=== PATIENT | female | born 1965 | race African-American/Black ===

== ENCOUNTER 2017-07-08 08:19 | Emergency (ER) | payer MEDICARE, MEDICAID ==
[~2017-07-08] VITALS: Ht 165.1 cm; Wt 77.0 kg
[~2017-07-08 08:19] MED LIST: AMLO10TA4 PO; FURO-152 PO
[2017-07-08 08:33] VITALS: BP 146/82
[2017-07-08] MEDS ORDERED: ACETAMINOPHEN 325MG TABLET PO ONE (09:30)
== END 2017-07-08 11:16 | disposition home or self-care (01) ==
LOC: ER 09:36
DX: M25.562 Pain in left knee (principal); I12.0 Hypertensive chronic kidney disease with stage 5 chronic kidney disease or end stage renal disease; N18.6 End stage renal disease; Z99.2 Dependence on renal dialysis; Z88.0 Allergy status to penicillin
CPT/HCPCS: 73562; 99284; L1830

== ENCOUNTER 2021-12-26 07:52 | Emergency (ER) | payer MEDICARE, MEDICAID ==
[~2021-12-26] VITALS: Ht 162.6 cm; Wt 72.0 kg
[2021-12-26] MEDS ORDERED: ONDANSETRON HCL 4MG TABLET PO ONE (08:30)
[2021-12-26 10:12] VITALS: BP 146/78
== END 2021-12-26 10:13 | disposition home or self-care (01) ==
LOC: SUPCPDRO 08:52 → ER 09:10
DX: I16.1 Hypertensive emergency (principal); I12.0 Hypertensive chronic kidney disease with stage 5 chronic kidney disease or end stage renal disease; N18.6 End stage renal disease; Z99.2 Dependence on renal dialysis; Z79.899 Other long term (current) drug therapy; Z88.0 Allergy status to penicillin
CPT/HCPCS: 99283; Q0162

== ENCOUNTER 2022-02-15 04:24 | Inpatient (IN) | payer MEDICARE, MEDICAID ==
[~2022-02-15] VITALS: Ht 165.1 cm; Wt 53.6 kg
[2022-02-15 06:23] LABS: BASOPHILS % 0.7 % (0.0-2.0); EOSINOPHILS % 0.2 % (0.0-5.0); HEMATOCRIT. 29.7 % (36.0-48.0); HEMOGLOBIN. 9.7 g/dL (12.0-16.0); LYMPHOCYTES % 9.6 % (20.0-50.0); MEAN CORPUSCULAR HEMOGLOBIN 28.1 pg (28.0-32.0); MEAN CORPUSCULAR VOLUME 86.3 fL (81.0-99.0); MEAN PLATELET VOLUME 7.9 fl (7.4-10.4); MONOCYTES % 5.3 % (2.0-8.0); NEUTROPHILS % 84.2 % (40.0-76.0); PLATELET 197 x1000/uL (130-400); RED BLOOD CELL COUNT 3.44 mill/uL (4.2-5.4); RED CELL DISTRIBUTION WIDTH 17.2 % (11.6-14.6)
[2022-02-15 06:37] LABS: CHLORIDE 100 mEq/L (98-107)
[2022-02-15 07:09] LABS: HEPATITIS B SURFACE ANTIGEN NEGATIVE
[2022-02-15] MEDS ORDERED: CLONIDINE 0.1MG TABLET PO PRN (16:15)
[2022-02-15] MEDS ORDERED: ACETAMINOPHEN 325MG TABLET PO PRN ×2 (16:15)
[2022-02-15] MEDS ORDERED: HYDROCODONE/ACETAMINOPHEN 5/325MG TABLET PO PRN (16:15)
[2022-02-15] MEDS ORDERED: ENOXAPARIN 40MG/0.4ML SYR SUBCUT SCH (16:15)
[2022-02-15] MEDS ORDERED: MAGNESIUM/ALUMINUM HYDROXIDE/SIMETHICONE 30ML UDC PO PRN (16:15)
[2022-02-15] MEDS ORDERED: ONDANSETRON HCL 4MG/2ML INJ IV PRN (16:15)
[2022-02-15] MEDS ORDERED: GUAIFENESIN 200MG/10ML SUGAR FREE UDC PO PRN (16:15)
[2022-02-15] MEDS ORDERED: LOSA100T32 PO (16:28)
[2022-02-15] MEDS ORDERED: REN800 PO (16:28)
[2022-02-15] MEDS ORDERED: CLON0.2T PO (16:28)
[2022-02-15] MEDS ORDERED: HYDR100T31 PO (16:28)
[2022-02-15] MEDS ORDERED: AMLO10TA80 PO (16:28)
[2022-02-15] MEDS: METOPROLOL TARTRATE 25MG TABLET PO SCH ×3 (16:30→20:25)
[2022-02-15 18:11] VITALS: BP 161/99
[2022-02-15] MEDS: HYDRALAZINE HCL 100MG TABLET PO SCH (18:19)
[2022-02-15] MEDS: SEVELAMER CARBONATE 800 MG TABLET PO SCH (18:19)
[2022-02-15 20:00] VITALS: BP 126/71
[2022-02-15] MEDS: ENOXAPARIN 30MG/0.3ML SYR SUBCUT SCH (20:22)
[2022-02-16 00:17] VITALS: BP 143/85
[2022-02-16 04:13] VITALS: BP 143/96
[2022-02-16 08:00] VITALS: BP 128/78
[2022-02-16 08:18] LABS: BASOPHILS % 1.7 % (0.0-2.0); HEMATOCRIT. 29.1 % (36.0-48.0); HEMOGLOBIN. 9.7 g/dL (12.0-16.0); LYMPHOCYTES % 18.6 % (20.0-50.0); MEAN CORPUSCULAR HEMOGLOBIN 28.5 pg (28.0-32.0); MEAN CORPUSCULAR VOLUME 85.7 fL (81.0-99.0); MEAN PLATELET VOLUME 8.5 fl (7.4-10.4); NEUTROPHILS % 69.7 % (40.0-76.0); PLATELET 223 x1000/uL (130-400); RED CELL DISTRIBUTION WIDTH 17.2 % (11.6-14.6)
[2022-02-16] MEDS: METOPROLOL TARTRATE 25MG TABLET PO SCH ×2 (09:00→21:00)
[2022-02-16] MEDS ORDERED: LOSARTAN POTASSIUM 100 MG TABLET PO SCH (09:00)
[2022-02-16] MEDS: AMLODIPINE 10MG TABLET PO SCH (10:37)
[2022-02-16] MEDS: HYDRALAZINE HCL 100MG TABLET PO SCH ×4 (10:37→22:01)
[2022-02-16] MEDS: SEVELAMER CARBONATE 800 MG TABLET PO SCH ×3 (10:37→19:23)
[2022-02-16 12:00] VITALS: BP 158/108
[2022-02-16 17:22] VITALS: BP 137/85
[2022-02-16 20:00] VITALS: BP 154/91
[2022-02-16] MEDS: ENOXAPARIN 30MG/0.3ML SYR SUBCUT SCH (21:00)
[2022-02-16] MEDS: LOSARTAN POTASSIUM 100 MG TABLET PO SCH (22:01)
[2022-02-17] VITALS: BP 153/100
[2022-02-17 04:00] VITALS: BP 138/82
[2022-02-17] MEDS: HYDRALAZINE HCL 100MG TABLET PO SCH ×3 (06:45→21:42)
[2022-02-17 08:00] VITALS: BP 155/93
[2022-02-17 08:12] LABS: BASOPHILS % 1.3 % (0.0-2.0); EOSINOPHILS % 3.1 % (0.0-5.0); HEMATOCRIT. 30.4 % (36.0-48.0); HEMOGLOBIN. 10.1 g/dL (12.0-16.0); LYMPHOCYTES % 17.4 % (20.0-50.0); MEAN CORPUSCULAR HEMOGLOBIN 28.5 pg (28.0-32.0); MEAN CORPUSCULAR VOLUME 85.7 fL (81.0-99.0); MEAN PLATELET VOLUME 7.9 fl (7.4-10.4); MONOCYTES % 7.9 % (2.0-8.0); NEUTROPHILS % 70.3 % (40.0-76.0); PLATELET 262 x1000/uL (130-400); RED BLOOD CELL COUNT 3.55 mill/uL (4.2-5.4); RED CELL DISTRIBUTION WIDTH 17.1 % (11.6-14.6)
[2022-02-17] MEDS: SEVELAMER CARBONATE 800 MG TABLET PO SCH ×3 (08:43→18:21)
[2022-02-17] MEDS: METOPROLOL TARTRATE 25MG TABLET PO SCH ×3 (09:00→21:52)
[2022-02-17] MEDS: LOSARTAN POTASSIUM 100 MG TABLET PO SCH (09:00)
[2022-02-17] MEDS: AMLODIPINE 10MG TABLET PO SCH (10:40)
[2022-02-17 12:00] VITALS: BP 127/80
[2022-02-17] MEDS ORDERED: NALOXONE HCL 0.4MG/ML VIAL IV PRN (15:30)
[2022-02-17 16:00] VITALS: BP 145/91
[2022-02-17 17:05] LABS: INR 1.2
[2022-02-17 20:00] VITALS: BP 148/99
[2022-02-17] MEDS: ENOXAPARIN 30MG/0.3ML SYR SUBCUT SCH (21:41)
[2022-02-18] VITALS: BP 137/85
[2022-02-18 04:00] VITALS: BP 135/86
[2022-02-18] MEDS: HYDRALAZINE HCL 100MG TABLET PO SCH ×3 (05:48→22:00)
[2022-02-18] MEDS: SEVELAMER CARBONATE 800 MG TABLET PO SCH ×3 (07:50→17:23)
[2022-02-18 08:00] VITALS: BP 166/94
[2022-02-18] MEDS: METOPROLOL TARTRATE 25MG TABLET PO SCH ×2 (09:00→21:00)
[2022-02-18] MEDS: AMLODIPINE 10MG TABLET PO SCH (09:35)
[2022-02-18] MEDS: LOSARTAN POTASSIUM 100 MG TABLET PO SCH (09:36)
[2022-02-18 12:00] VITALS: BP 160/90
[2022-02-18 16:30] VITALS: BP 127/79
[2022-02-18 20:00] VITALS: BP 151/99
[2022-02-18] MEDS: ENOXAPARIN 30MG/0.3ML SYR SUBCUT SCH (20:59)
[2022-02-19] VITALS: BP 140/90
[2022-02-19 04:00] VITALS: BP 162/92
[2022-02-19] MEDS: HYDRALAZINE HCL 100MG TABLET PO SCH ×3 (07:15→21:11)
[2022-02-19] MEDS: SEVELAMER CARBONATE 800 MG TABLET PO SCH ×3 (07:50→18:39)
[2022-02-19 08:00] VITALS: BP 162/96
[2022-02-19] MEDS ORDERED: NICARDIPINE 100MCG/ML 10ML VIAL (CATH LAB) IV ONE (08:43)
[2022-02-19] MEDS ORDERED: HEPARIN SODIUM 1,000 UNIT/1ML VIAL IV ONE (08:43)
[2022-02-19] MEDS ORDERED: NITROGLYCERIN 50MCG/ML 10ML VIAL (CATH LAB) IV ONE (08:43)
[2022-02-19] MEDS: AMLODIPINE 10MG TABLET PO SCH (08:57)
[2022-02-19] MEDS: ASPIRIN 81MG TABLET PO SCH (09:00)
[2022-02-19] MEDS: LOSARTAN POTASSIUM 100 MG TABLET PO SCH (09:00)
[2022-02-19] MEDS: METOPROLOL TARTRATE 25MG TABLET PO SCH ×3 (09:00→21:11)
[2022-02-19] MEDS ORDERED: MIDAZOLAM HCL 2 MG/2 ML VIAL ONE (09:26)
[2022-02-19] MEDS ORDERED: LIDOCAINE HCL 1% 30ML VIAL (10MG/ML) ONE (09:26)
[2022-02-19] MEDS ORDERED: VERAPAMIL HCL 2.5 MG/1 ML 2ML VIAL IV ONE (09:26)
[2022-02-19] MEDS ORDERED: FENTANYL CITRATE/PF 50MCG/ML 2ML VIAL ONE (09:26)
[2022-02-19] MEDS ORDERED: IODIXANOL 320MG/ML 100 ML BOTTLE IV ONE (09:27)
[2022-02-19] MEDS ORDERED: DIPHENHYDRAMINE 50MG/ML VIAL ONE (09:34)
[2022-02-19] MEDS ORDERED: ATROPINE SULFATE 1MG/10ML SYR IV PRN (11:00)
[2022-02-19 12:56] VITALS: BP 149/94
[2022-02-19] MEDS ORDERED: LIP40 PO (13:01)
[2022-02-19] MEDS ORDERED: COR6 PO (13:01)
[2022-02-19] MEDS ORDERED: ASPI-1497 MT (13:01)
[2022-02-19 16:00] VITALS: BP 157/78
[2022-02-19 19:47] LABS: EOSINOPHILS % 2.4 % (0.0-5.0); HEMATOCRIT. 31.9 % (36.0-48.0); HEMOGLOBIN. 10.6 g/dL (12.0-16.0); LYMPHOCYTES % 24.2 % (20.0-50.0); MEAN CORPUSCULAR HEMOGLOBIN 28.6 pg (28.0-32.0); MEAN CORPUSCULAR VOLUME 85.9 fL (81.0-99.0); MEAN PLATELET VOLUME 7.2 fl (7.4-10.4); MONOCYTES % 6.5 % (2.0-8.0); NEUTROPHILS % 64.9 % (40.0-76.0); PLATELET 273 x1000/uL (130-400); RED BLOOD CELL COUNT 3.72 mill/uL (4.2-5.4); RED CELL DISTRIBUTION WIDTH 17.5 % (11.6-14.6)
[2022-02-19 20:00] VITALS: BP 143/89
[2022-02-19] MEDS: CARVEDILOL 6.25 MG TABLET PO SCH ×2 (21:00→21:11)
[2022-02-19] MEDS ORDERED: ATORVASTATIN CALCIUM 40MG TABLET PO SCH (21:00)
[2022-02-19] MEDS: ENOXAPARIN 30MG/0.3ML SYR SUBCUT SCH ×2 (21:00→21:11)
[2022-02-20] VITALS: BP 142/88
[2022-02-20 04:00] VITALS: BP 167/105
[2022-02-20] MEDS: HYDRALAZINE HCL 100MG TABLET PO SCH (05:44)
[2022-02-20 06:47] LABS: BASOPHILS % 1.2 % (0.0-2.0); EOSINOPHILS % 2.6 % (0.0-5.0); HEMATOCRIT. 29.2 % (36.0-48.0); HEMOGLOBIN. 9.7 g/dL (12.0-16.0); LYMPHOCYTES % 26.3 % (20.0-50.0); MEAN CORPUSCULAR HEMOGLOBIN 28.5 pg (28.0-32.0); MEAN CORPUSCULAR VOLUME 86.1 fL (81.0-99.0); MEAN PLATELET VOLUME 7.5 fl (7.4-10.4); MONOCYTES % 8.5 % (2.0-8.0); NEUTROPHILS % 61.4 % (40.0-76.0); PLATELET 285 x1000/uL (130-400); RED BLOOD CELL COUNT 3.39 mill/uL (4.2-5.4); RED CELL DISTRIBUTION WIDTH 17.5 % (11.6-14.6)
[2022-02-20 08:00] VITALS: BP 159/90
[2022-02-20] MEDS: SEVELAMER CARBONATE 800 MG TABLET PO SCH (08:50)
[2022-02-20] MEDS: CARVEDILOL 6.25 MG TABLET PO SCH (08:52)
[2022-02-20] MEDS: AMLODIPINE 10MG TABLET PO SCH (08:52)
[2022-02-20] MEDS: ASPIRIN 81MG TABLET PO SCH (08:52)
[2022-02-20] MEDS: LOSARTAN POTASSIUM 100 MG TABLET PO SCH (08:52)
[2022-02-20] MEDS: METOPROLOL TARTRATE 25MG TABLET PO SCH (08:53)
[2022-02-20 11:18] VITALS: BP 158/94
[2022-02-20 12:00] VITALS: BP 158/94
== END 2022-02-20 12:52 | disposition home or self-care (01) | DRG 280 ==
LOC: ER 04:49 → 6WST 12:32 → SUPCPDRO 15:56 → ENRESERV 16:41
PROVIDERS: ADMIT Internal Medicine; ATTEND Internal Medicine
PROC: 5A1D70Z Performance of Urinary Filtration, Intermittent, Less than 6 Hours Per Day (ICD-10-PCS; 2022-02-15)
PROC: B211YZZ Fluoroscopy of Multiple Coronary Arteries using Other Contrast (ICD-10-PCS; principal; 2022-02-19)
PROC: 4A023N7 Measurement of Cardiac Sampling and Pressure, Left Heart, Percutaneous Approach (ICD-10-PCS; 2022-02-19)
PROC: B34HZZZ Ultrasonography of Right Upper Extremity Arteries (ICD-10-PCS; 2022-02-19)
PROC: 5A1D70Z Performance of Urinary Filtration, Intermittent, Less than 6 Hours Per Day (ICD-10-PCS; 2022-02-19)
DX: I21.4 Non-ST elevation (NSTEMI) myocardial infarction (principal); N18.6 End stage renal disease; I50.41 Acute combined systolic (congestive) and diastolic (congestive) heart failure; I42.8 Other cardiomyopathies; I13.2 Hypertensive heart and chronic kidney disease with heart failure and with stage 5 chronic kidney disease, or end stage renal disease; Z20.822 Contact with and (suspected) exposure to COVID-19; I25.10 Atherosclerotic heart disease of native coronary artery without angina pectoris; D64.9 Anemia, unspecified; I16.0 Hypertensive urgency; I47.9 Paroxysmal tachycardia, unspecified; R01.1 Cardiac murmur, unspecified; Z99.2 Dependence on renal dialysis; Z88.0 Allergy status to penicillin; Z79.84 Long term (current) use of oral hypoglycemic drugs; Z79.899 Other long term (current) drug therapy; Z98.891 History of uterine scar from previous surgery; Z79.82 Long term (current) use of aspirin
CPT/HCPCS: 36415; 71045; 80048; 80053; 83880; 84443; 84484; 85025; 86705; 86709; 86803; 87340; 87426; 93005; 93306; 93458; 99291; C1769; C1887; C1893; J1200; J1644; J1650; J2250; J3010; J3490; Q9967

== ENCOUNTER 2022-04-27 10:10 | Emergency (ER) | payer MEDICARE, MEDICAID ==
[~2022-04-27] VITALS: Ht 165.1 cm; Wt 48.0 kg
[~2022-04-27 10:10] MED LIST changes: -AMLO10TA4 PO; +AMLO10TA80 PO; +ASPI-1497 MT; +CLON0.2T PO; +COR6 PO; -FURO-152 PO; +HYDR100T31 PO; +LIP40 PO; +LOSA100T32 PO; +REN800 PO
[2022-04-27 10:24] VITALS: BP 140/78
[2022-04-27 15:23] LABS: BASOPHILS % 1.2 % (0.0-2.0); EOSINOPHILS % 1.6 % (0.0-5.0); HEMOGLOBIN. 12.9 g/dL (12.0-16.0); LYMPHOCYTES % 39.9 % (20.0-50.0); MEAN CORPUSCULAR HEMOGLOBIN 27.5 pg (28.0-32.0); MEAN CORPUSCULAR VOLUME 87.3 fL (81.0-99.0); MEAN PLATELET VOLUME 8.4 fl (7.4-10.4); MONOCYTES % 8.2 % (2.0-8.0); NEUTROPHILS % 49.1 % (40.0-76.0); PLATELET 246 x1000/uL (130-400); RED CELL DISTRIBUTION WIDTH 16.8 % (11.6-14.6)
[2022-04-27 15:28] LABS: CHLORIDE 98 mEq/L (98-107)
== END 2022-04-27 17:02 | disposition home or self-care (01) ==
LOC: ER 10:10
DX: R31.0 Gross hematuria (principal); I12.0 Hypertensive chronic kidney disease with stage 5 chronic kidney disease or end stage renal disease; N18.6 End stage renal disease; Z99.2 Dependence on renal dialysis; Z79.82 Long term (current) use of aspirin; Z79.899 Other long term (current) drug therapy
CPT/HCPCS: 36415; 80053; 85025; 99283

== ENCOUNTER 2022-05-04 11:03 | Emergency (ER) | payer MEDICARE, MEDICAID ==
[~2022-05-04] VITALS: Ht 165.1 cm; Wt 52.0 kg
[2022-05-04 11:17] VITALS: BP 144/97
[2022-05-04 12:08] LABS: CLARITY URINE TURBID (CLEAR); COLOR URINE RED (YELLOW); KETONES URINE NEGATIVE (NEGATIVE); LEUKOCYTE ESTERASE URINE 3+ (NEGATIVE); NITRITE URINE POSITIVE (NEGATIVE); OCCULT BLOOD URINE NEGATIVE (NEGATIVE); PROTEIN URINE NEGATIVE (NEGATIVE); SPECIFIC GRAVITY URINE 1.027 (1.005-1.030); UROBILINOGEN URINE 0.2 E.U./dL (0.2-1.0)
[2022-05-04] MEDS ORDERED: CIPR-263 MT (12:58)
== END 2022-05-04 13:21 | disposition home or self-care (01) ==
LOC: ER 11:03
DX: N39.0 Urinary tract infection, site not specified (principal); R31.0 Gross hematuria; I12.0 Hypertensive chronic kidney disease with stage 5 chronic kidney disease or end stage renal disease; N18.6 End stage renal disease; Z99.2 Dependence on renal dialysis
CPT/HCPCS: 74176; 81003; 99284

== ENCOUNTER 2022-09-25 06:56 | Inpatient (IN) | payer MEDICARE, MEDICAID ==
[~2022-09-25] VITALS: Ht 165.1 cm; Wt 57.6 kg
[~2022-09-25 06:56] MED LIST changes: +CIPR-263 MT
[2022-09-25 07:48] LABS: BASOPHILS % 1.2 % (0.0-2.0); EOSINOPHILS % 3.7 % (0.0-5.0); HEMATOCRIT. 34.3 % (36.0-48.0); HEMOGLOBIN. 11.1 g/dL (12.0-16.0); LYMPHOCYTES % 25.8 % (20.0-50.0); MEAN CORPUSCULAR HEMOGLOBIN 29.3 pg (28.0-32.0); MEAN CORPUSCULAR VOLUME 90.8 fL (81.0-99.0); MEAN PLATELET VOLUME 8.2 fl (7.4-10.4); NEUTROPHILS % 60.3 % (40.0-76.0); PLATELET 186 x1000/uL (130-400); RED BLOOD CELL COUNT 3.78 mill/uL (4.2-5.4); RED CELL DISTRIBUTION WIDTH 15.1 % (11.6-14.6)
[2022-09-25 08:53] LABS: CHLORIDE 106 mEq/L (98-107)
[2022-09-25] MEDS ORDERED: ONDANSETRON HCL 4MG/2ML INJ IV PRN (11:45)
[2022-09-25] MEDS ORDERED: LOSARTAN POTASSIUM 100 MG TABLET PO SCH (11:45)
[2022-09-25] MEDS ORDERED: DIPHENHYDRAMINE 50MG/ML VIAL IV PRN (11:45)
[2022-09-25] MEDS ORDERED: MAGNESIUM/ALUMINUM HYDROXIDE/SIMETHICONE 30ML UDC PO PRN (11:45)
[2022-09-25] MEDS ORDERED: DOCUSATE SODIUM 100MG CAPSULE PO PRN (11:45)
[2022-09-25] MEDS ORDERED: ACETAMINOPHEN 325MG TABLET PO PRN ×2 (11:45)
[2022-09-25] MEDS ORDERED: LORAZEPAM 0.5MG TABLET PO PRN (11:45)
[2022-09-25] MEDS ORDERED: IPRATROPIUM/ALBUTEROL 0.5-3(2.5)MG/3ML NEB HHN PRN (11:45)
[2022-09-25 12:00] VITALS: BP 181/111
[2022-09-25] MEDS: ASPIRIN 81MG EC TABLET PO SCH (12:00)
[2022-09-25] MEDS: HYDRALAZINE HCL 100MG TABLET PO SCH ×2 (12:00→21:28)
[2022-09-25 12:21] VITALS: BP 181/111
[2022-09-25] MEDS ORDERED: LABETALOL 5MG/ML SYR 20 MG/4 ML SYRINGE IV PRN (13:15)
[2022-09-25 14:20] LABS: PHOSPHORUS 1.8 mg/dL (2.5-4.9)
[2022-09-25] MEDS: ENOXAPARIN 30MG/0.3ML SYR SUBCUT SCH (14:32)
[2022-09-25] MEDS: PANTOPRAZOLE SODIUM 40 MG/VIAL IV SCH (14:32)
[2022-09-25 16:00] VITALS: BP 163/103
[2022-09-25] MEDS ORDERED: *PATIENT'S OWN MEDICATION STORAGE XX SCH (16:30)
[2022-09-25 20:00] VITALS: BP 176/99
[2022-09-25] MEDS: ATORVASTATIN CALCIUM 40MG TABLET PO SCH (21:28)
[2022-09-25] MEDS: CARVEDILOL 6.25 MG TABLET PO SCH (21:28)
[2022-09-25] MEDS: CLONIDINE 0.1MG TABLET PO PRN (21:28)
[2022-09-26] VITALS (7 sets, daily range): BP systolic 135–202; BP diastolic 82–114
[2022-09-26] MEDS: CLONIDINE 0.1MG TABLET PO PRN ×2 (03:58→08:55)
[2022-09-26] MEDS: HYDRALAZINE HCL 100MG TABLET PO SCH ×3 (03:58→21:52)
[2022-09-26 08:16] LABS: BASOPHILS % 0.8 % (0.0-2.0); EOSINOPHILS % 3.9 % (0.0-5.0); HEMATOCRIT. 30.3 % (36.0-48.0); LYMPHOCYTES % 32.7 % (20.0-50.0); MEAN CORPUSCULAR HEMOGLOBIN 29.3 pg (28.0-32.0); MEAN CORPUSCULAR VOLUME 89.3 fL (81.0-99.0); MEAN PLATELET VOLUME 8.2 fl (7.4-10.4); MONOCYTES % 9.2 % (2.0-8.0); NEUTROPHILS % 53.4 % (40.0-76.0); PLATELET 189 x1000/uL (130-400); RED CELL DISTRIBUTION WIDTH 15.3 % (11.6-14.6)
[2022-09-26 08:26] LABS: CHLORIDE 100 mEq/L (98-107)
[2022-09-26 08:46] LABS: HDL CHOLESTEROL 48 mg/dL (40-59); LDL CHOLESTEROL 37 mg/dL (5-100)
[2022-09-26] MEDS: ASPIRIN 81MG EC TABLET PO SCH (08:55)
[2022-09-26] MEDS: AMLODIPINE 10MG TABLET PO SCH (08:55)
[2022-09-26] MEDS: CARVEDILOL 6.25 MG TABLET PO SCH (08:55)
[2022-09-26] MEDS: PANTOPRAZOLE SODIUM 40 MG/VIAL IV SCH (08:56)
[2022-09-26] MEDS: ENOXAPARIN 30MG/0.3ML SYR SUBCUT SCH (08:56)
[2022-09-26] MEDS ORDERED: LOSARTAN POTASSIUM 50 MG TABLET PO SCH (09:00)
[2022-09-26 10:21] LABS: T4 FREE 0.96 ng/dL (0.76-1.46)
[2022-09-26] MEDS: SEVELAMER CARBONATE 800 MG TABLET PO SCH ×2 (13:06→17:57)
[2022-09-26] MEDS: FOLIC ACID/VITAMIN B COMP W-C TABLET PO SCH (13:06)
[2022-09-26] MEDS: DOXAZOSIN MESYLATE 2MG TABLET PO SCH ×2 (13:07→21:52)
[2022-09-26] MEDS ORDERED: CLONIDINE 0.2MG TABLET PO SCH (14:00)
[2022-09-26] MEDS ORDERED: CLONIDINE 0.1MG TABLET PO PRN (15:30)
[2022-09-26 16:11] LABS: CREATINE KINASE MB FRACTION 1.5 ng/mL (0.5-3.6)
[2022-09-26 16:24] LABS: HEPATITIS B SURFACE ANTIGEN NEGATIVE
[2022-09-26] MEDS: ATORVASTATIN CALCIUM 40MG TABLET PO SCH (21:52)
[2022-09-26] MEDS: CARVEDILOL 12.5MG TABLET PO SCH (21:52)
[2022-09-26] MEDS: CLONIDINE 0.2MG TABLET PO SCH (21:52)
[2022-09-27] VITALS (9 sets, daily range): BP systolic 148–220; BP diastolic 95–136
[2022-09-27 00:57] LABS: CREATINE KINASE MB FRACTION 1.1 ng/mL (0.5-3.6)
[2022-09-27] MEDS: HYDRALAZINE HCL 100MG TABLET PO SCH ×3 (05:45→21:17)
[2022-09-27] MEDS: CLONIDINE 0.2MG TABLET PO SCH ×3 (05:45→21:18)
[2022-09-27] MEDS: CARVEDILOL 12.5MG TABLET PO SCH ×2 (09:00→21:17)
[2022-09-27] MEDS: LOSARTAN POTASSIUM 100 MG TABLET PO SCH (09:00)
[2022-09-27] MEDS: DOXAZOSIN MESYLATE 2MG TABLET PO SCH ×3 (09:00→21:18)
[2022-09-27] MEDS: ASPIRIN 81MG EC TABLET PO SCH (09:12)
[2022-09-27] MEDS: SEVELAMER CARBONATE 800 MG TABLET PO SCH ×3 (09:12→19:57)
[2022-09-27] MEDS: FAMOTIDINE 20MG TABLET PO SCH (09:12)
[2022-09-27] MEDS: FOLIC ACID/VITAMIN B COMP W-C TABLET PO SCH (09:12)
[2022-09-27] MEDS: ENOXAPARIN 30MG/0.3ML SYR SUBCUT SCH (09:14)
[2022-09-27] MEDS ORDERED: SIMETHICONE 80MG TABLET CHEW PO PRN (12:00)
[2022-09-27] MEDS: AMLODIPINE 10MG TABLET PO SCH (12:23)
[2022-09-27] MEDS: HYDRALAZINE 20MG/ML VIAL IV PRN (12:23)
[2022-09-27] MEDS ORDERED: DOCU-150 PO (17:45)
[2022-09-27] MEDS ORDERED: FAMO20TA8 PO (17:45)
[2022-09-27] MEDS ORDERED: DOXA2TAB PO (17:45)
[2022-09-27] MEDS ORDERED: NEPVIT PO (17:45)
[2022-09-27] MEDS ORDERED: COR12 PO (17:45)
[2022-09-27] MEDS: ATORVASTATIN CALCIUM 40MG TABLET PO SCH (21:17)
[2022-09-27 21:26] LABS: HEMOGLOBIN 11.5 g/dL (12.0-16.0); MEAN CORPUSCULAR HEMOGLOBIN 29.1 pg (28.0-32.0); MEAN CORPUSCULAR VOLUME 88.7 fL (81.0-99.0); PLATELET 206 x1000/uL (130-400); RED BLOOD CELL COUNT 3.95 mill/uL (4.2-5.4); RED CELL DISTRIBUTION WIDTH 15.4 % (11.6-14.6)
[2022-09-27 21:35] LABS: CHLORIDE 95 mEq/L (98-107)
[2022-09-27 21:59] LABS: CREATINE KINASE 49 IU/L (26-192); CREATINE KINASE MB FRACTION < 1.0 ng/mL (0.5-3.6)
[2022-09-28] VITALS: BP 178/120
[2022-09-28] MEDS: HYDRALAZINE 20MG/ML VIAL IV PRN (00:10)
[2022-09-28 04:00] VITALS: BP 142/92
[2022-09-28] MEDS: HYDRALAZINE HCL 100MG TABLET PO SCH (05:41)
[2022-09-28] MEDS: CLONIDINE 0.2MG TABLET PO SCH (05:41)
[2022-09-28 08:00] VITALS: BP 152/102
[2022-09-28 09:17] VITALS: BP 152/102
[2022-09-28] MEDS: AMLODIPINE 10MG TABLET PO SCH (09:50)
[2022-09-28] MEDS: ASPIRIN 81MG EC TABLET PO SCH (09:51)
[2022-09-28] MEDS: SEVELAMER CARBONATE 800 MG TABLET PO SCH (09:51)
[2022-09-28] MEDS: LOSARTAN POTASSIUM 100 MG TABLET PO SCH (09:53)
[2022-09-28] MEDS: DOXAZOSIN MESYLATE 2MG TABLET PO SCH (09:53)
[2022-09-28] MEDS: CARVEDILOL 12.5MG TABLET PO SCH (09:54)
[2022-09-28] MEDS: ENOXAPARIN 30MG/0.3ML SYR SUBCUT SCH (09:55)
[2022-09-28] MEDS: FOLIC ACID/VITAMIN B COMP W-C TABLET PO SCH (09:57)
[2022-09-28] MEDS: FAMOTIDINE 20MG TABLET PO SCH (09:57)
== END 2022-09-28 11:00 | disposition home or self-care (01) | DRG 308 ==
LOC: ER 06:56 → 8WST 10:48 → ENRESERV 11:01
PROVIDERS: ADMIT Internal Medicine; ATTEND Internal Medicine
PROC: 5A1D70Z Performance of Urinary Filtration, Intermittent, Less than 6 Hours Per Day (ICD-10-PCS; principal; 2022-09-27)
DX: I47.1 Supraventricular tachycardia (principal); N18.6 End stage renal disease; I13.2 Hypertensive heart and chronic kidney disease with heart failure and with stage 5 chronic kidney disease, or end stage renal disease; I50.22 Chronic systolic (congestive) heart failure; I42.8 Other cardiomyopathies; E78.5 Hyperlipidemia, unspecified; I16.0 Hypertensive urgency; Z99.2 Dependence on renal dialysis; Z88.0 Allergy status to penicillin; I25.2 Old myocardial infarction; D63.1 Anemia in chronic kidney disease; I25.10 Atherosclerotic heart disease of native coronary artery without angina pectoris; Z87.892 Personal history of anaphylaxis; Z79.899 Other long term (current) drug therapy; I27.20 Pulmonary hypertension, unspecified; I34.0 Nonrheumatic mitral (valve) insufficiency
CPT/HCPCS: 36415; 71045; 80048; 80053; 80061; 82550; 82553; 83036; 83735; 83880; 84100; 84439; 84443; 84481; 84484; 85025; 85027; 85379; 86705; 86709; 86803; 87340; 90935; 93005; 93306; 99285; C9113; J0360; J1650; J3490

== ENCOUNTER 2022-10-14 06:26 | Inpatient (IN) | payer MEDICARE, MEDICAID ==
[~2022-10-14] VITALS: Ht 165.1 cm; Wt 60.5 kg
[~2022-10-14 06:26] MED LIST changes: -ASPI-1497 MT; -CIPR-263 MT; +COR12 PO; -COR6 PO; +DOCU-150 PO; +DOXA2TAB PO; +FAMO20TA8 PO; +NEPVIT PO
[2022-10-14 08:09] LABS: BASOPHILS % 2.2 % (0.0-2.0); EOSINOPHILS % 4.5 % (0.0-5.0); HEMATOCRIT. 27.7 % (36.0-48.0); LYMPHOCYTES % 21.1 % (20.0-50.0); MEAN CORPUSCULAR HEMOGLOBIN 28.7 pg (28.0-32.0); MEAN CORPUSCULAR VOLUME 88.2 fL (81.0-99.0); MEAN PLATELET VOLUME 7.2 fl (7.4-10.4); MONOCYTES % 7.2 % (2.0-8.0); PLATELET 269 x1000/uL (130-400); RED BLOOD CELL COUNT 3.14 mill/uL (4.2-5.4); RED CELL DISTRIBUTION WIDTH 14.6 % (11.6-14.6)
[2022-10-14 08:23] LABS: CHLORIDE 102 mEq/L (98-107)
[2022-10-14] MEDS ORDERED: HYDRALAZINE 20MG/ML VIAL IV ONE (10:30)
[2022-10-14] MEDS ORDERED: ONDANSETRON HCL 4MG/2ML INJ IV PRN (11:00)
[2022-10-14] MEDS ORDERED: NITROGLYCERIN 0.4MG TABLET SL SL PRN (11:00)
[2022-10-14] MEDS ORDERED: ZOLPIDEM TARTRATE 5MG TABLET PO PRN (11:00)
[2022-10-14] MEDS ORDERED: GUAIFENESIN 200MG/10ML SUGAR FREE UDC PO PRN (11:00)
[2022-10-14] MEDS ORDERED: MAGNESIUM/ALUMINUM HYDROXIDE/SIMETHICONE 30ML UDC PO PRN (11:00)
[2022-10-14] MEDS ORDERED: CARVEDILOL 3.125 MG TABLET PO SCH (11:00)
[2022-10-14] MEDS ORDERED: IPRATROPIUM/ALBUTEROL 0.5-3(2.5)MG/3ML NEB NEB PRN (11:00)
[2022-10-14] MEDS ORDERED: ACETAMINOPHEN 325MG TABLET PO PRN ×2 (11:00)
[2022-10-14] MEDS ORDERED: DOCUSATE SODIUM 100MG CAPSULE PO PRN (11:00)
[2022-10-14 11:25] VITALS: BP 177/76
[2022-10-14] MEDS: ENOXAPARIN 30MG/0.3ML SYR SUBCUT SCH (11:53)
[2022-10-14] MEDS: CLONIDINE 0.1MG TABLET PO PRN (12:24)
[2022-10-14] MEDS: FAMOTIDINE 20MG TABLET PO SCH (12:24)
[2022-10-14 13:17] LABS: FOLIC ACID (FOLATE) SERUM 6.9 ng/mL (>5.38)
[2022-10-14] MEDS: HYDRALAZINE HCL 50MG TABLET PO SCH ×2 (14:19→21:28)
[2022-10-14] MEDS: SEVELAMER CARBONATE 800 MG TABLET PO SCH ×2 (14:38→17:35)
[2022-10-14 16:00] VITALS: BP 160/64
[2022-10-14] MEDS: CARVEDILOL 12.5MG TABLET PO SCH (17:36)
[2022-10-14 18:54] LABS: CREATINE KINASE 36 IU/L (26-192); CREATINE KINASE MB FRACTION < 1.0 ng/mL (0.5-3.6)
[2022-10-14 20:00] VITALS: BP 150/63
[2022-10-14 21:53] LABS: HEPATITIS B SURFACE ANTIGEN NEGATIVE
[2022-10-15] VITALS (14 sets, daily range): BP systolic 141–198; BP diastolic 50–87
[2022-10-15 00:04] LABS: ETHANOL BLOOD < 10 mg/dL; HDL CHOLESTEROL 45 mg/dL (40-59); LDL CHOLESTEROL 34 mg/dL (5-100); T4 FREE 1.02 ng/dL (0.76-1.46); TOTAL IRON BINDING CAPACITY 177 ug/dL (250-450)
[2022-10-15] MEDS: CLONIDINE 0.1MG TABLET PO PRN ×2 (01:33→11:24)
[2022-10-15] MEDS: CARVEDILOL 12.5MG TABLET PO SCH ×2 (06:03→17:46)
[2022-10-15] MEDS: HYDRALAZINE HCL 50MG TABLET PO SCH ×3 (06:03→20:50)
[2022-10-15 07:19] LABS: BASOPHILS % 1.9 % (0.0-2.0); EOSINOPHILS % 6.1 % (0.0-5.0); HEMATOCRIT. 23.7 % (36.0-48.0); HEMOGLOBIN. 7.9 g/dL (12.0-16.0); LYMPHOCYTES % 33.1 % (20.0-50.0); MEAN CORPUSCULAR VOLUME 87.1 fL (81.0-99.0); MEAN PLATELET VOLUME 7.6 fl (7.4-10.4); MONOCYTES % 7.8 % (2.0-8.0); NEUTROPHILS % 51.1 % (40.0-76.0); PLATELET 248 x1000/uL (130-400); RED BLOOD CELL COUNT 2.72 mill/uL (4.2-5.4); RED CELL DISTRIBUTION WIDTH 14.6 % (11.6-14.6)
[2022-10-15] MEDS: SEVELAMER CARBONATE 800 MG TABLET PO SCH ×3 (08:13→17:46)
[2022-10-15] MEDS: ASPIRIN 325MG EC TABLET PO SCH (08:13)
[2022-10-15] MEDS: LOSARTAN POTASSIUM 50 MG TABLET PO SCH (08:14)
[2022-10-15] MEDS: AMLODIPINE 10MG TABLET PO SCH (08:14)
[2022-10-15] MEDS: FAMOTIDINE 20MG TABLET PO SCH (08:16)
[2022-10-15 08:31] LABS: CHLORIDE 101 mEq/L (98-107)
[2022-10-15 08:41] LABS: CREATINE KINASE 30 IU/L (26-192); CREATINE KINASE MB FRACTION < 1.0 ng/mL (0.5-3.6); PHOSPHORUS 3.7 mg/dL (2.5-4.9)
[2022-10-15] MEDS: ENOXAPARIN 30MG/0.3ML SYR SUBCUT SCH (11:30)
[2022-10-16] VITALS (7 sets, daily range): BP systolic 148–196; BP diastolic 49–77
[2022-10-16] MEDS: CARVEDILOL 12.5MG TABLET PO SCH (05:42)
[2022-10-16] MEDS: HYDRALAZINE HCL 50MG TABLET PO SCH ×2 (05:42→13:39)
[2022-10-16] MEDS: LOSARTAN POTASSIUM 50 MG TABLET PO SCH (08:10)
[2022-10-16] MEDS: AMLODIPINE 10MG TABLET PO SCH (08:10)
[2022-10-16] MEDS: SEVELAMER CARBONATE 800 MG TABLET PO SCH ×2 (08:10→13:39)
[2022-10-16] MEDS: ASPIRIN 325MG EC TABLET PO SCH (08:11)
[2022-10-16] MEDS: FAMOTIDINE 20MG TABLET PO SCH (08:11)
[2022-10-16] MEDS: CLONIDINE 0.1MG TABLET PO PRN (09:21)
[2022-10-16] MEDS: ENOXAPARIN 30MG/0.3ML SYR SUBCUT SCH (12:00)
[2022-10-31] MEDS ORDERED: NIFE-33 PO ×3 (11:21→11:24)
[2022-10-31] MEDS ORDERED: PANT40TA51 PO ×3 (11:21→11:24)
[2022-10-31] MEDS ORDERED: SEVE800T8 PO ×2 (11:21)
[2022-11-09] MEDS ORDERED: VANC125C11 MT (16:04)
== END 2022-10-16 16:00 | disposition home or self-care (01) | DRG 291 ==
LOC: ER 06:26 → 7WST 10:17 → EDBEDREQTM 10:19 → EDBEDREQ 10:19
PROVIDERS: ADMIT Internal Medicine; ATTEND Internal Medicine
PROC: 5A1D70Z Performance of Urinary Filtration, Intermittent, Less than 6 Hours Per Day (ICD-10-PCS; principal; 2022-10-15)
DX: I13.2 Hypertensive heart and chronic kidney disease with heart failure and with stage 5 chronic kidney disease, or end stage renal disease (principal); I50.33 Acute on chronic diastolic (congestive) heart failure; N18.6 End stage renal disease; I47.1 Supraventricular tachycardia; D63.8 Anemia in other chronic diseases classified elsewhere; Z88.0 Allergy status to penicillin; I10 Essential (primary) hypertension; Z79.899 Other long term (current) drug therapy; Z99.2 Dependence on renal dialysis
CPT/HCPCS: 36415; 71045; 80048; 80053; 80061; 80320; 82550; 82553; 82607; 82746; 83036; 83540; 83550; 83735; 83880; 84100; 84439; 84443; 84484; 85025; 86705; 86709; 86803; 87340; 90935; 93005; 93970; 99285; G0480

== ENCOUNTER 2022-10-25 08:25 | Inpatient (IN) | payer MEDICARE, MEDICAID ==
[~2022-10-25] VITALS: Ht 182.9 cm; Wt 65.3 kg
[2022-10-25] MEDS ORDERED: CLONIDINE 0.2MG TABLET PO ONE (09:15)
[2022-10-25] MEDS ORDERED: CLONIDINE 0.2MG TABLET PO SCH (12:15)
[2022-10-25 14:33] LABS: CHLORIDE 104 mEq/L (98-107)
[2022-10-25] MEDS ORDERED: ALBUTEROL (0.083%) 2.5MG/3ML NEB HHN ONE (14:45)
[2022-10-25] MEDS ORDERED: SODIUM BICARBONATE 8.4% 1 MEQ/ML 50ML SYR IV ONE (14:45)
[2022-10-25] MEDS ORDERED: SODIUM POLYSTYRENE SULFONATE 15 G/60 ML BOT PO ONE (14:45)
[2022-10-25 15:36] LABS: BASOPHILS % 2.3 % (0.0-2.0); EOSINOPHILS % 3.8 % (0.0-5.0); HEMOGLOBIN. 7.2 g/dL (12.0-16.0); LYMPHOCYTES % 19.9 % (20.0-50.0); MEAN CORPUSCULAR HEMOGLOBIN 28.8 pg (28.0-32.0); MEAN CORPUSCULAR VOLUME 87.5 fL (81.0-99.0); MEAN PLATELET VOLUME 8.6 fl (7.4-10.4); MONOCYTES % 5.1 % (2.0-8.0); NEUTROPHILS % 68.9 % (40.0-76.0); PLATELET 189 x1000/uL (130-400); RED BLOOD CELL COUNT 2.51 mill/uL (4.2-5.4); RED CELL DISTRIBUTION WIDTH 15.7 % (11.6-14.6)
[2022-10-25] MEDS ORDERED: CLONIDINE 0.1MG TABLET PO ONE (16:00)
[2022-10-25] MEDS ORDERED: AMLODIPINE 10MG TABLET PO NR (16:45)
[2022-10-25] MEDS ORDERED: MAGNESIUM/ALUMINUM HYDROXIDE/SIMETHICONE 30ML UDC PO PRN (17:00)
[2022-10-25] MEDS ORDERED: IPRATROPIUM/ALBUTEROL 0.5-3(2.5)MG/3ML NEB HHN PRN (17:00)
[2022-10-25] MEDS ORDERED: GUAIFENESIN 200MG/10ML SUGAR FREE UDC PO PRN (17:00)
[2022-10-25] MEDS ORDERED: ACETAMINOPHEN 325MG TABLET PO PRN ×2 (17:00)
[2022-10-25] MEDS ORDERED: ENOXAPARIN 40MG/0.4ML SYR SUBCUT SCH (17:00)
[2022-10-25] MEDS ORDERED: ONDANSETRON HCL 4MG/2ML INJ IV PRN (17:00)
[2022-10-25] MEDS: FAMOTIDINE 20MG TABLET PO SCH (18:26)
[2022-10-25] MEDS: LOSARTAN POTASSIUM 100 MG TABLET PO SCH (18:26)
[2022-10-25] MEDS: HYDRALAZINE HCL 100MG TABLET PO SCH (19:47)
[2022-10-25 19:54] LABS: CLARITY URINE CLOUDY (CLEAR); COLOR URINE YELLOW (YELLOW); KETONES URINE NEGATIVE (NEGATIVE); LEUKOCYTE ESTERASE URINE 1+ (NEGATIVE); NITRITE URINE NEGATIVE (NEGATIVE); OCCULT BLOOD URINE 3+ (NEGATIVE); PH URINE 8.5 (4.5-8.0); PROTEIN URINE 3+ (NEGATIVE); SPECIFIC GRAVITY URINE 1.008 (1.005-1.030); UROBILINOGEN URINE 0.2 E.U./dL (0.2-1.0)
[2022-10-25] MEDS: CLONIDINE 0.2MG TABLET PO SCH (22:02)
[2022-10-25] MEDS: ATORVASTATIN CALCIUM 40MG TABLET PO SCH (22:03)
[2022-10-25] MEDS: DOXAZOSIN MESYLATE 2MG TABLET PO SCH (22:03)
[2022-10-25] MEDS: CARVEDILOL 12.5MG TABLET PO SCH (22:03)
[2022-10-25] MEDS: ENOXAPARIN 30MG/0.3ML SYR SUBCUT SCH (22:07)
[2022-10-25 22:09] LABS: *BARBITURATES SCREEN URINE NEGATIVE (NEGATIVE); *BENZODIAZEPINES SCREEN URINE NEGATIVE (NEGATIVE); *COCAINE SCREEN URINE NEGATIVE (NEGATIVE); CANNABINOID URINE SCREEN NEGATIVE (NEGATIVE); METHADONE URINE SCREEN NEGATIVE (NEGATIVE); OPIATES URINE SCREEN NEGATIVE (NEGATIVE); PHENCYCLIDINE URINE SCREEN NEGATIVE (NEGATIVE)
[2022-10-25 23:02] LABS: *AMPHETAMINES SCREEN URINE NEGATIVE (NEGATIVE)
[2022-10-26] VITALS (21 sets, daily range): BP systolic 88–199; BP diastolic 58–89
[2022-10-26] MEDS: HYDRALAZINE HCL 100MG TABLET PO SCH ×4 (01:13→22:35)
[2022-10-26] MEDS ORDERED: *PATIENT'S OWN MEDICATION STORAGE XX SCH (02:00)
[2022-10-26] MEDS ORDERED: LOSA50TA41 PO (02:54)
[2022-10-26] MEDS ORDERED: CLON0.1T PO (02:54)
[2022-10-26] MEDS ORDERED: METO-396 PO (02:54)
[2022-10-26] MEDS ORDERED: CARV12.545 PO (02:54)
[2022-10-26] MEDS ORDERED: NIFE-33 PO (02:54)
[2022-10-26] MEDS ORDERED: NIFE30TA94 PO (02:54)
[2022-10-26] MEDS ORDERED: METO25TA6 PO (02:54)
[2022-10-26] MEDS ORDERED: CIPR500T5 PO (02:54)
[2022-10-26] MEDS ORDERED: ASPI-1406 PO (02:54)
[2022-10-26] MEDS ORDERED: LOSA25TA26 PO (02:54)
[2022-10-26] MEDS ORDERED: ATOR40TA70 PO (02:54)
[2022-10-26] MEDS: CLONIDINE 0.2MG TABLET PO SCH ×3 (05:42→22:36)
[2022-10-26 05:43] LABS: BASOPHILS % 1.7 % (0.0-2.0); EOSINOPHILS % 4.6 % (0.0-5.0); HEMATOCRIT. 21.7 % (36.0-48.0); HEMOGLOBIN. 7.1 g/dL (12.0-16.0); MEAN CORPUSCULAR HEMOGLOBIN 28.7 pg (28.0-32.0); MEAN PLATELET VOLUME 8.8 fl (7.4-10.4); MONOCYTES % 6.1 % (2.0-8.0); NEUTROPHILS % 63.6 % (40.0-76.0); PLATELET 168 x1000/uL (130-400); RED BLOOD CELL COUNT 2.49 mill/uL (4.2-5.4); RED CELL DISTRIBUTION WIDTH 15.5 % (11.6-14.6)
[2022-10-26 06:02] LABS: T4 FREE 0.97 ng/dL (0.76-1.46)
[2022-10-26] MEDS: FAMOTIDINE 20MG TABLET PO SCH (12:38)
[2022-10-26] MEDS: CARVEDILOL 12.5MG TABLET PO SCH ×2 (12:38→21:33)
[2022-10-26] MEDS: DOXAZOSIN MESYLATE 2MG TABLET PO SCH ×2 (12:38→21:33)
[2022-10-26] MEDS: LOSARTAN POTASSIUM 100 MG TABLET PO SCH (12:38)
[2022-10-26] MEDS: AMLODIPINE 10MG TABLET PO SCH (12:40)
[2022-10-26] MEDS ORDERED: LEVOFLOXACIN 500MG PREMIX 100 ML IV NR (15:30)
[2022-10-26 17:48] LABS: HEPATITIS B SURFACE ANTIGEN NEGATIVE
[2022-10-26] MEDS ORDERED: EPOETIN ALFA-EPBX 4,000 UNIT/ML VIAL SUBCUT NR (21:00)
[2022-10-26] MEDS: ENOXAPARIN 30MG/0.3ML SYR SUBCUT SCH (21:32)
[2022-10-26] MEDS: ATORVASTATIN CALCIUM 40MG TABLET PO SCH (21:33)
[2022-10-27] VITALS (10 sets, daily range): BP systolic 144–178; BP diastolic 55–88
[2022-10-27] MEDS: HYDRALAZINE HCL 100MG TABLET PO SCH ×3 (05:41→22:01)
[2022-10-27] MEDS: CLONIDINE 0.2MG TABLET PO SCH ×3 (05:42→22:01)
[2022-10-27 06:21] LABS: CHLORIDE 103 mEq/L (98-107)
[2022-10-27 06:36] LABS: MEAN CORPUSCULAR VOLUME 89.6 fL (81.0-99.0); PLATELET 160 x1000/uL (130-400); RED BLOOD CELL COUNT 2.33 mill/uL (4.2-5.4)
[2022-10-27 06:53] LABS: HEMATOCRIT 20.9 % (36.0-48.0); HEMOGLOBIN 6.8 g/dL (12.0-16.0)
[2022-10-27] MEDS: FAMOTIDINE 20MG TABLET PO SCH (08:55)
[2022-10-27] MEDS: CARVEDILOL 12.5MG TABLET PO SCH ×2 (08:56→21:32)
[2022-10-27] MEDS: LOSARTAN POTASSIUM 100 MG TABLET PO SCH (08:56)
[2022-10-27] MEDS: DOXAZOSIN MESYLATE 2MG TABLET PO SCH ×2 (08:56→21:33)
[2022-10-27] MEDS: AMLODIPINE 10MG TABLET PO SCH (08:58)
[2022-10-27] MEDS: CLONIDINE 0.1MG TABLET PO PRN (14:04)
[2022-10-27 16:38] LABS: TOTAL IRON BINDING CAPACITY 137 ug/dL (250-450)
[2022-10-27] MEDS: SEVELAMER CARBONATE 800 MG TABLET PO SCH (17:49)
[2022-10-27 18:33] LABS: CLARITY URINE CLOUDY (CLEAR); COLOR URINE YELLOW (YELLOW); KETONES URINE NEGATIVE (NEGATIVE); LEUKOCYTE ESTERASE URINE 1+ (NEGATIVE); NITRITE URINE NEGATIVE (NEGATIVE); OCCULT BLOOD URINE 3+ (NEGATIVE); PH URINE 8.5 (4.5-8.0); PROTEIN URINE 3+ (NEGATIVE); SPECIFIC GRAVITY URINE 1.009 (1.005-1.030); UROBILINOGEN URINE 0.2 E.U./dL (0.2-1.0)
[2022-10-27 19:06] LABS: *AMPHETAMINES SCREEN URINE NEGATIVE (NEGATIVE); *BARBITURATES SCREEN URINE NEGATIVE (NEGATIVE); *BENZODIAZEPINES SCREEN URINE NEGATIVE (NEGATIVE); *COCAINE SCREEN URINE NEGATIVE (NEGATIVE); CANNABINOID URINE SCREEN NEGATIVE (NEGATIVE); METHADONE URINE SCREEN NEGATIVE (NEGATIVE); OPIATES URINE SCREEN NEGATIVE (NEGATIVE); PHENCYCLIDINE URINE SCREEN NEGATIVE (NEGATIVE)
[2022-10-27 19:30] LABS: HEMATOCRIT 23.9 % (36.0-48.0)
[2022-10-27] MEDS: ATORVASTATIN CALCIUM 40MG TABLET PO SCH (21:32)
[2022-10-28] VITALS (10 sets, daily range): BP systolic 142–190; BP diastolic 60–95
[2022-10-28] MEDS: HYDRALAZINE HCL 100MG TABLET PO SCH ×3 (05:49→21:04)
[2022-10-28] MEDS: CLONIDINE 0.2MG TABLET PO SCH ×3 (05:50→21:11)
[2022-10-28 05:56] LABS: BASOPHILS % 1.2 % (0.0-2.0); EOSINOPHILS % 3.6 % (0.0-5.0); HEMATOCRIT. 22.8 % (36.0-48.0); HEMOGLOBIN. 7.8 g/dL (12.0-16.0); MEAN CORPUSCULAR HEMOGLOBIN 29.8 pg (28.0-32.0); MEAN CORPUSCULAR VOLUME 87.3 fL (81.0-99.0); MEAN PLATELET VOLUME 8.7 fl (7.4-10.4); MONOCYTES % 8.5 % (2.0-8.0); NEUTROPHILS % 57.7 % (40.0-76.0); PLATELET 154 x1000/uL (130-400); RED BLOOD CELL COUNT 2.61 mill/uL (4.2-5.4)
[2022-10-28 06:02] LABS: INR 1.5; PROTHROMBIN TIME 15.4 sec (9.6-11.0)
[2022-10-28] MEDS: SEVELAMER CARBONATE 800 MG TABLET PO SCH ×3 (08:53→17:45)
[2022-10-28] MEDS: LOSARTAN POTASSIUM 100 MG TABLET PO SCH (08:53)
[2022-10-28] MEDS: FAMOTIDINE 20MG TABLET PO SCH (08:53)
[2022-10-28] MEDS: CARVEDILOL 12.5MG TABLET PO SCH ×2 (08:54→21:04)
[2022-10-28] MEDS: NIFEDIPINE XL 30MG TAB PO SCH (08:54)
[2022-10-28] MEDS: DOXAZOSIN MESYLATE 2MG TABLET PO SCH ×2 (08:54→21:04)
[2022-10-28] MEDS: PANTOPRAZOLE SODIUM 40 MG/VIAL IV SCH (09:00)
[2022-10-28 09:24] LABS: CHLORIDE 99 mEq/L (98-107)
[2022-10-28 09:37] LABS: PHOSPHORUS 4.4 mg/dL (2.5-4.9); TOTAL IRON BINDING CAPACITY 160 ug/dL (250-450)
[2022-10-28] MEDS: LEVOFLOXACIN 250MG PREMIX 50 ML IV SCH (12:00)
[2022-10-28 13:00] LABS: VITAMIN B12 SERUM 333 pg/mL (211-911)
[2022-10-28] MEDS: CLONIDINE 0.1MG TABLET PO PRN (13:38)
[2022-10-28] MEDS: FOLIC ACID 1MG TABLET PO SCH (17:45)
[2022-10-28] MEDS: DOCUSATE SODIUM 100MG CAPSULE PO PRN (17:47)
[2022-10-28] MEDS ORDERED: EPOETIN ALFA-EPBX 4,000 UNIT/ML VIAL SUBCUT SCH (21:00)
[2022-10-28] MEDS: ATORVASTATIN CALCIUM 40MG TABLET PO SCH (21:04)
[2022-10-28] MEDS: EPOETIN ALFA-EPBX 4,000 UNIT/ML VIAL SUBCUT SCH (21:12)
[2022-10-29] VITALS: BP 151/79
[2022-10-29 03:28] LABS: BASOPHILS % 0.8 % (0.0-2.0); EOSINOPHILS % 3.8 % (0.0-5.0); HEMOGLOBIN. 7.5 g/dL (12.0-16.0); MEAN CORPUSCULAR HEMOGLOBIN 29.6 pg (28.0-32.0); MEAN PLATELET VOLUME 8.4 fl (7.4-10.4); MONOCYTES % 9.1 % (2.0-8.0); NEUTROPHILS % 56.3 % (40.0-76.0); PLATELET 137 x1000/uL (130-400); RED BLOOD CELL COUNT 2.53 mill/uL (4.2-5.4); RED CELL DISTRIBUTION WIDTH 15.5 % (11.6-14.6)
[2022-10-29 03:58] LABS: INR 1.5; PROTHROMBIN TIME 15.5 sec (9.6-11.0)
[2022-10-29 04:00] VITALS: BP 145/80
[2022-10-29] MEDS: CLONIDINE 0.2MG TABLET PO SCH ×3 (05:23→23:27)
[2022-10-29] MEDS: HYDRALAZINE HCL 100MG TABLET PO SCH ×3 (05:23→23:28)
[2022-10-29] MEDS: SEVELAMER CARBONATE 800 MG TABLET PO SCH ×3 (07:40→16:11)
[2022-10-29 08:00] VITALS: BP 145/85
[2022-10-29] MEDS: CARVEDILOL 12.5MG TABLET PO SCH ×2 (09:00→20:15)
[2022-10-29] MEDS: LOSARTAN POTASSIUM 100 MG TABLET PO SCH (09:00)
[2022-10-29] MEDS: DOXAZOSIN MESYLATE 2MG TABLET PO SCH ×2 (09:00→20:15)
[2022-10-29] MEDS: FOLIC ACID 1MG TABLET PO SCH (09:00)
[2022-10-29] MEDS: NIFEDIPINE XL 30MG TAB PO SCH (09:00)
[2022-10-29] MEDS: PANTOPRAZOLE SODIUM 40 MG/VIAL IV SCH (09:50)
[2022-10-29] MEDS ORDERED: SIMETHICONE 40 MG/0.6 ML 15ML ONE (12:13)
[2022-10-29] MEDS ORDERED: HYDRALAZINE 20MG/ML VIAL ONE (12:44)
[2022-10-29] MEDS ORDERED: SODIUM CHLORIDE 0.9% 1,000 ML IV SCH (13:15)
[2022-10-29] MEDS ORDERED: HYDRALAZINE 20MG/ML VIAL IV PRN (13:15)
[2022-10-29 16:00] VITALS: BP 162/91
[2022-10-29 20:03] VITALS: BP 133/83
[2022-10-29] MEDS: ATORVASTATIN CALCIUM 40MG TABLET PO SCH (20:15)
[2022-10-29 23:25] VITALS: BP 138/85
[2022-10-30] VITALS (11 sets, daily range): BP systolic 131–195; BP diastolic 69–93
[2022-10-30] MEDS: CLONIDINE 0.2MG TABLET PO SCH ×2 (06:35→14:00)
[2022-10-30] MEDS: HYDRALAZINE HCL 100MG TABLET PO SCH ×2 (06:35→14:00)
[2022-10-30 08:03] LABS: BASOPHILS % 1.1 % (0.0-2.0); EOSINOPHILS % 4.1 % (0.0-5.0); HEMATOCRIT. 23.3 % (36.0-48.0); HEMOGLOBIN. 7.8 g/dL (12.0-16.0); LYMPHOCYTES % 23.4 % (20.0-50.0); MEAN CORPUSCULAR HEMOGLOBIN 29.4 pg (28.0-32.0); MEAN CORPUSCULAR VOLUME 87.1 fL (81.0-99.0); MEAN PLATELET VOLUME 8.7 fl (7.4-10.4); NEUTROPHILS % 63.4 % (40.0-76.0); PLATELET 172 x1000/uL (130-400); RED BLOOD CELL COUNT 2.67 mill/uL (4.2-5.4); RED CELL DISTRIBUTION WIDTH 15.3 % (11.6-14.6)
[2022-10-30] MEDS: DOXAZOSIN MESYLATE 2MG TABLET PO SCH ×2 (09:00→21:00)
[2022-10-30] MEDS: FOLIC ACID 1MG TABLET PO SCH (11:45)
[2022-10-30] MEDS: LEVOFLOXACIN 250MG PREMIX 50 ML IV SCH (11:46)
[2022-10-30] MEDS: SEVELAMER CARBONATE 800 MG TABLET PO SCH ×3 (11:46→18:54)
[2022-10-30] MEDS: PANTOPRAZOLE SODIUM 40 MG/VIAL IV SCH (11:48)
[2022-10-30] MEDS: PANTOPRAZOLE 40MG DR TABLET PO SCH (12:00)
[2022-10-30] MEDS ORDERED: MAGNESIUM HYDROXIDE 400MG/5ML 30ML UDC PO SCH (12:00)
[2022-10-30] MEDS: DOCUSATE SODIUM 100MG CAPSULE PO PRN (14:48)
[2022-10-30] MEDS: NIFEDIPINE XL 30MG TAB PO SCH (14:49)
[2022-10-30] MEDS: LOSARTAN POTASSIUM 100 MG TABLET PO SCH (14:49)
[2022-10-30] MEDS: CARVEDILOL 12.5MG TABLET PO SCH ×2 (14:49→21:15)
[2022-10-30] MEDS ORDERED: PANT40TA51 PO (16:16)
[2022-10-30] MEDS ORDERED: NIFE-33 PO (16:16)
[2022-10-30] MEDS ORDERED: SEVE800T8 PO (16:16)
[2022-10-30] MEDS: ATORVASTATIN CALCIUM 40MG TABLET PO SCH (21:14)
[2022-10-30] MEDS: EPOETIN ALFA-EPBX 4,000 UNIT/ML VIAL SUBCUT SCH (21:15)
[2022-10-31] VITALS: BP 147/85
[2022-10-31] MEDS: CLONIDINE 0.2MG TABLET PO SCH ×2 (00:23→06:01)
[2022-10-31] MEDS: HYDRALAZINE HCL 100MG TABLET PO SCH ×2 (00:23→06:01)
[2022-10-31 04:00] VITALS: BP 140/81
[2022-10-31 07:09] LABS: BASOPHILS % 0.8 % (0.0-2.0); EOSINOPHILS % 2.4 % (0.0-5.0); HEMOGLOBIN. 7.7 g/dL (12.0-16.0); LYMPHOCYTES % 12.5 % (20.0-50.0); MEAN CORPUSCULAR HEMOGLOBIN 29.3 pg (28.0-32.0); MEAN CORPUSCULAR VOLUME 87.2 fL (81.0-99.0); MEAN PLATELET VOLUME 8.5 fl (7.4-10.4); MONOCYTES % 6.1 % (2.0-8.0); NEUTROPHILS % 78.2 % (40.0-76.0); PLATELET 168 x1000/uL (130-400); RED BLOOD CELL COUNT 2.63 mill/uL (4.2-5.4); RED CELL DISTRIBUTION WIDTH 15.1 % (11.6-14.6)
[2022-10-31 08:00] VITALS: BP 147/69
[2022-10-31] MEDS: DOXAZOSIN MESYLATE 2MG TABLET PO SCH (08:07)
[2022-10-31] MEDS: LOSARTAN POTASSIUM 100 MG TABLET PO SCH (08:07)
[2022-10-31] MEDS: NIFEDIPINE XL 30MG TAB PO SCH (08:07)
[2022-10-31] MEDS: FOLIC ACID 1MG TABLET PO SCH (08:07)
[2022-10-31] MEDS: SEVELAMER CARBONATE 800 MG TABLET PO SCH (08:07)
[2022-10-31] MEDS: PANTOPRAZOLE 40MG DR TABLET PO SCH (08:08)
[2022-10-31] MEDS: CARVEDILOL 12.5MG TABLET PO SCH (08:08)
[2022-10-31 08:52] LABS: CHLORIDE 99 mEq/L (98-107)
[2022-10-31] MEDS ORDERED: NIFE-33 PO ×3 (11:21→11:24)
[2022-10-31] MEDS ORDERED: PANT40TA51 PO ×3 (11:21→11:24)
[2022-10-31] MEDS ORDERED: SEVE800T8 PO ×2 (11:21)
== END 2022-10-31 10:36 | disposition home or self-care (01) | DRG 371 ==
LOC: ER 08:25 → MICUSO 15:01 → EDBEDREQ 15:03 → SUPCPDRO 17:35 → ENRESERV 21:58 → 8WST 10-26 01:05
PROVIDERS: ADMIT Internal Medicine; ATTEND Internal Medicine
PROC: 05H433Z Insertion of Infusion Device into Left Innominate Vein, Percutaneous Approach (ICD-10-PCS; 2022-10-25)
PROC: B54NZZA Ultrasonography of Left Upper Extremity Veins, Guidance (ICD-10-PCS; 2022-10-25)
PROC: 5A1D70Z Performance of Urinary Filtration, Intermittent, Less than 6 Hours Per Day (ICD-10-PCS; 2022-10-25)
PROC: 30233N1 Transfusion of Nonautologous Red Blood Cells into Peripheral Vein, Percutaneous Approach (ICD-10-PCS; 2022-10-27)
PROC: 5A1D70Z Performance of Urinary Filtration, Intermittent, Less than 6 Hours Per Day (ICD-10-PCS; 2022-10-28)
PROC: 0DB98ZX Excision of Duodenum, Via Natural or Artificial Opening Endoscopic, Diagnostic (ICD-10-PCS; principal; 2022-10-29)
PROC: 0DB78ZX Excision of Stomach, Pylorus, Via Natural or Artificial Opening Endoscopic, Diagnostic (ICD-10-PCS; 2022-10-29)
PROC: 5A1D70Z Performance of Urinary Filtration, Intermittent, Less than 6 Hours Per Day (ICD-10-PCS; 2022-10-30)
DX: A04.72 Enterocolitis due to Clostridium difficile, not specified as recurrent (principal); I50.23 Acute on chronic systolic (congestive) heart failure; N18.6 End stage renal disease; I13.2 Hypertensive heart and chronic kidney disease with heart failure and with stage 5 chronic kidney disease, or end stage renal disease; I16.9 Hypertensive crisis, unspecified; E46 Unspecified protein-calorie malnutrition; I47.1 Supraventricular tachycardia; Z68.1 Body mass index [BMI] 19.9 or less, adult; I34.0 Nonrheumatic mitral (valve) insufficiency; I25.10 Atherosclerotic heart disease of native coronary artery without angina pectoris; D50.9 Iron deficiency anemia, unspecified; F41.9 Anxiety disorder, unspecified; K29.70 Gastritis, unspecified, without bleeding; K44.9 Diaphragmatic hernia without obstruction or gangrene; K52.9 Noninfective gastroenteritis and colitis, unspecified; E78.5 Hyperlipidemia, unspecified; E87.5 Hyperkalemia; Z20.822 Contact with and (suspected) exposure to COVID-19; Z88.0 Allergy status to penicillin; Z91.14 Patient's other noncompliance with medication regimen; Z91.15 Patient's noncompliance with renal dialysis; Z99.2 Dependence on renal dialysis; Z79.899 Other long term (current) drug therapy; Z98.891 History of uterine scar from previous surgery
CPT/HCPCS: 36415; 36573; 71045; 80048; 80053; 80305; 81003; 82270; 82607; 82728; 82746; 83540; 83550; 83735; 83880; 84100; 84439; 84443; 84484; 85014; 85018; 85025; 85027; 85044; 86705; 86709; 86803; 86850; 86900; 86920; 87015; 87045; 87340; 87426; 87427; 87449; 88305; 90935; 93005; 93970; 99285; C1725; C9113; J0360; J0885; J1650; J1956; J3490; P9016

== ENCOUNTER 2022-11-06 07:32 | Inpatient (IN) | payer MEDICARE, MEDICAID ==
[~2022-11-06] VITALS: Ht 165.1 cm; Wt 81.9 kg
[~2022-11-06 07:32] MED LIST changes: +ASPI-1406 PO; -DOCU-150 PO; -FAMO20TA8 PO; +NIFE-33 PO; +PANT40TA51 PO; -REN800 PO
[2022-11-06 09:14] LABS: BASOPHILS % 0.7 % (0.0-2.0); EOSINOPHILS % 1.5 % (0.0-5.0); HEMOGLOBIN. 8.8 g/dL (12.0-16.0); MEAN CORPUSCULAR HEMOGLOBIN 29.9 pg (28.0-32.0); MEAN CORPUSCULAR VOLUME 87.8 fL (81.0-99.0); MEAN PLATELET VOLUME 7.7 fl (7.4-10.4); MONOCYTES % 4.1 % (2.0-8.0); NEUTROPHILS % 84.7 % (40.0-76.0); PLATELET 186 x1000/uL (130-400); RED BLOOD CELL COUNT 2.96 mill/uL (4.2-5.4); RED CELL DISTRIBUTION WIDTH 16.1 % (11.6-14.6)
[2022-11-06 09:45] LABS: CHLORIDE 103 mEq/L (98-107)
[2022-11-06] MEDS ORDERED: IPRATROPIUM/ALBUTEROL 0.5-3(2.5)MG/3ML NEB HHN PRN (13:00)
[2022-11-06] MEDS ORDERED: GUAIFENESIN 200MG/10ML SUGAR FREE UDC PO PRN (13:00)
[2022-11-06] MEDS ORDERED: MAGNESIUM/ALUMINUM HYDROXIDE/SIMETHICONE 30ML UDC PO PRN (13:00)
[2022-11-06] MEDS ORDERED: DOCUSATE SODIUM 100MG CAPSULE PO PRN (13:00)
[2022-11-06] MEDS ORDERED: ACETAMINOPHEN 325MG TABLET PO PRN ×2 (13:00)
[2022-11-06] MEDS ORDERED: ONDANSETRON HCL 4MG/2ML INJ IV PRN (13:00)
[2022-11-06] MEDS ORDERED: CLONIDINE 0.1MG TABLET PO PRN (13:00)
[2022-11-06 13:30] VITALS: BP 170/109
[2022-11-06] MEDS: ASPIRIN 81MG EC TABLET PO SCH (13:48)
[2022-11-06] MEDS: HYDRALAZINE HCL 100MG TABLET PO SCH ×2 (13:49→22:23)
[2022-11-06 16:00] VITALS: BP 155/89
[2022-11-06 20:00] VITALS: BP 166/96
[2022-11-06] MEDS: ATORVASTATIN CALCIUM 40MG TABLET PO SCH (22:22)
[2022-11-06] MEDS: CARVEDILOL 12.5MG TABLET PO SCH (22:23)
[2022-11-06] MEDS: DOXAZOSIN MESYLATE 2MG TABLET PO SCH (22:24)
[2022-11-07] VITALS (12 sets, daily range): BP systolic 135–181; BP diastolic 76–106
[2022-11-07 05:08] LABS: BASOPHILS % 0.8 % (0.0-2.0); EOSINOPHILS % 3.3 % (0.0-5.0); HEMATOCRIT. 22.3 % (36.0-48.0); HEMOGLOBIN. 7.5 g/dL (12.0-16.0); LYMPHOCYTES % 22.4 % (20.0-50.0); MEAN CORPUSCULAR HEMOGLOBIN 29.8 pg (28.0-32.0); MEAN CORPUSCULAR VOLUME 88.3 fL (81.0-99.0); MEAN PLATELET VOLUME 7.7 fl (7.4-10.4); MONOCYTES % 8.7 % (2.0-8.0); NEUTROPHILS % 64.8 % (40.0-76.0); PLATELET 160 x1000/uL (130-400); RED BLOOD CELL COUNT 2.52 mill/uL (4.2-5.4)
[2022-11-07 05:13] LABS: CHLORIDE 104 mEq/L (98-107)
[2022-11-07 05:43] LABS: T4 FREE 1.31 ng/dL (0.76-1.46)
[2022-11-07] MEDS: ASPIRIN 81MG EC TABLET PO SCH (09:09)
[2022-11-07] MEDS: FOLIC ACID/VITAMIN B COMP W-C TABLET PO SCH (09:09)
[2022-11-07] MEDS: LOSARTAN POTASSIUM 100 MG TABLET PO SCH (09:10)
[2022-11-07] MEDS: DOXAZOSIN MESYLATE 2MG TABLET PO SCH ×2 (09:10→21:50)
[2022-11-07] MEDS: PANTOPRAZOLE 40MG DR TABLET PO SCH (09:10)
[2022-11-07] MEDS: CARVEDILOL 12.5MG TABLET PO SCH ×2 (09:10→21:50)
[2022-11-07] MEDS: NIFEDIPINE XL 30MG TAB PO SCH (09:11)
[2022-11-07] MEDS: ENOXAPARIN 30MG/0.3ML SYR SUBCUT SCH (09:11)
[2022-11-07 11:24] LABS: EOSINOPHILS % 2.5 % (0.0-5.0); HEMATOCRIT. 28.8 % (36.0-48.0); HEMOGLOBIN. 9.6 g/dL (12.0-16.0); LYMPHOCYTES % 18.4 % (20.0-50.0); MEAN CORPUSCULAR HEMOGLOBIN 29.8 pg (28.0-32.0); MEAN CORPUSCULAR VOLUME 89.1 fL (81.0-99.0); MEAN PLATELET VOLUME 7.5 fl (7.4-10.4); MONOCYTES % 6.4 % (2.0-8.0); NEUTROPHILS % 71.7 % (40.0-76.0); PLATELET 201 x1000/uL (130-400); RED BLOOD CELL COUNT 3.23 mill/uL (4.2-5.4)
[2022-11-07 11:45] LABS: CHLORIDE 103 mEq/L (98-107)
[2022-11-07] MEDS: HYDRALAZINE HCL 100MG TABLET PO SCH ×2 (14:01→21:50)
[2022-11-07 15:12] LABS: HEPATITIS B SURFACE ANTIGEN NEGATIVE
[2022-11-07] MEDS: ATORVASTATIN CALCIUM 40MG TABLET PO SCH (21:50)
[2022-11-08] VITALS: BP 128/78
[2022-11-08 04:00] VITALS: BP 149/81
[2022-11-08 06:27] LABS: BASOPHILS % 1.3 % (0.0-2.0); EOSINOPHILS % 4.3 % (0.0-5.0); HEMATOCRIT. 25.5 % (36.0-48.0); HEMOGLOBIN. 8.5 g/dL (12.0-16.0); LYMPHOCYTES % 25.3 % (20.0-50.0); MEAN CORPUSCULAR HEMOGLOBIN 29.4 pg (28.0-32.0); MEAN CORPUSCULAR VOLUME 88.3 fL (81.0-99.0); MEAN PLATELET VOLUME 8.4 fl (7.4-10.4); MONOCYTES % 8.9 % (2.0-8.0); NEUTROPHILS % 60.2 % (40.0-76.0); PLATELET 171 x1000/uL (130-400); RED BLOOD CELL COUNT 2.89 mill/uL (4.2-5.4); RED CELL DISTRIBUTION WIDTH 16.1 % (11.6-14.6)
[2022-11-08 06:32] LABS: PHOSPHORUS 3.1 mg/dL (2.5-4.9)
[2022-11-08] MEDS: PANTOPRAZOLE 40MG DR TABLET PO SCH (06:37)
[2022-11-08] MEDS: HYDRALAZINE HCL 100MG TABLET PO SCH ×2 (06:37→13:41)
[2022-11-08 08:00] VITALS: BP 165/98
[2022-11-08] MEDS: DOXAZOSIN MESYLATE 2MG TABLET PO SCH (08:21)
[2022-11-08] MEDS: LOSARTAN POTASSIUM 100 MG TABLET PO SCH (08:22)
[2022-11-08] MEDS: CARVEDILOL 12.5MG TABLET PO SCH (08:22)
[2022-11-08] MEDS: FOLIC ACID/VITAMIN B COMP W-C TABLET PO SCH (08:22)
[2022-11-08] MEDS: NIFEDIPINE XL 30MG TAB PO SCH (08:22)
[2022-11-08] MEDS: ASPIRIN 81MG EC TABLET PO SCH (08:22)
[2022-11-08] MEDS: ENOXAPARIN 30MG/0.3ML SYR SUBCUT SCH ×2 (08:23→08:36)
[2022-11-08 12:00] VITALS: BP 159/85
[2022-11-08 13:44] VITALS: BP 159/85
[2022-11-09] MEDS ORDERED: VANC125C11 MT (16:04)
== END 2022-11-08 17:53 | disposition home or self-care (01) | DRG 308 ==
LOC: ER 07:32 → 8WST 11:14 → EDBEDREQ 11:20 → EDBEDREQTM 11:20 → ENRESERV 12:21
PROVIDERS: ADMIT Internal Medicine; ATTEND Internal Medicine
PROC: 5A1D70Z Performance of Urinary Filtration, Intermittent, Less than 6 Hours Per Day (ICD-10-PCS; principal; 2022-11-07)
DX: I47.1 Supraventricular tachycardia (principal); N18.6 End stage renal disease; I13.2 Hypertensive heart and chronic kidney disease with heart failure and with stage 5 chronic kidney disease, or end stage renal disease; I16.9 Hypertensive crisis, unspecified; Z20.822 Contact with and (suspected) exposure to COVID-19; E88.09 Other disorders of plasma-protein metabolism, not elsewhere classified; D63.1 Anemia in chronic kidney disease; N20.0 Calculus of kidney; K29.60 Other gastritis without bleeding; I50.9 Heart failure, unspecified; Z88.0 Allergy status to penicillin; Z99.2 Dependence on renal dialysis; Z79.899 Other long term (current) drug therapy; Z79.82 Long term (current) use of aspirin; Z87.442 Personal history of urinary calculi
CPT/HCPCS: 36415; 71045; 74018; 80048; 80053; 83735; 83880; 84100; 84439; 84481; 84484; 85025; 86705; 86709; 86803; 87015; 87045; 87340; 87426; 87427; 87449; 87493; 89055; 93005; 93970; 99285; J1650

== ENCOUNTER 2023-01-04 18:39 | Inpatient (IN) | payer MEDICARE, MEDICAID ==
[~2023-01-04] VITALS: Ht 195.6 cm; Wt 59.9 kg
[~2023-01-04 18:39] MED LIST changes: +METR-167 MT
[2023-01-04] MEDS ORDERED: CLONIDINE 0.2MG TABLET PO ONE (22:45)
[2023-01-04 23:12] LABS: CHLORIDE 100 mEq/L (98-107)
[2023-01-04] MEDS ORDERED: LEVOFLOXACIN 750MG PREMIX 150 ML IV ONE (23:30)
[2023-01-04] MEDS ORDERED: OSELTAMIVIR 75MG CAPSULE PO ONE (23:30)
[2023-01-04 23:52] LABS: BASOPHILS % 0.6 % (0.0-2.0); EOSINOPHILS % 0.7 % (0.0-5.0); HEMATOCRIT. 42.6 % (36.0-48.0); HEMOGLOBIN. 13.6 g/dL (12.0-16.0); LYMPHOCYTES % 26.7 % (20.0-50.0); MEAN CORPUSCULAR HEMOGLOBIN 28.4 pg (28.0-32.0); MEAN CORPUSCULAR VOLUME 89.2 fL (81.0-99.0); MEAN PLATELET VOLUME 8.4 fl (7.4-10.4); MONOCYTES % 5.5 % (2.0-8.0); NEUTROPHILS % 66.5 % (40.0-76.0); PLATELET 240 x1000/uL (130-400); RED BLOOD CELL COUNT 4.78 mill/uL (4.2-5.4); RED CELL DISTRIBUTION WIDTH 17.4 % (11.6-14.6)
[2023-01-05] VITALS (11 sets, daily range): BP systolic 123–158; BP diastolic 85–116
[2023-01-05] MEDS ORDERED: ASPIRIN 81MG TABLET PO ONE (02:45)
[2023-01-05] MEDS ORDERED: GUAIFENESIN 200MG/10ML SUGAR FREE UDC PO PRN (08:30)
[2023-01-05] MEDS ORDERED: ACETAMINOPHEN 325MG TABLET PO PRN (08:30)
[2023-01-05] MEDS ORDERED: IPRATROPIUM/ALBUTEROL 0.5-3(2.5)MG/3ML NEB NEB PRN (08:30)
[2023-01-05] MEDS ORDERED: ONDANSETRON HCL 4MG/2ML INJ IV PRN (08:30)
[2023-01-05] MEDS ORDERED: DOCUSATE SODIUM 100MG CAPSULE PO PRN (08:30)
[2023-01-05] MEDS ORDERED: MAGNESIUM/ALUMINUM HYDROXIDE/SIMETHICONE 30ML UDC PO PRN (08:30)
[2023-01-05] MEDS: NIFEDIPINE XL 60MG TAB PO SCH (09:00)
[2023-01-05] MEDS: SEVELAMER CARBONATE 800 MG TABLET PO SCH ×3 (09:00→16:48)
[2023-01-05] MEDS ORDERED: FAMOTIDINE 20MG TABLET PO SCH (09:00)
[2023-01-05] MEDS: FAMOTIDINE 20MG TABLET PO SCH (09:00)
[2023-01-05] MEDS: LOSARTAN POTASSIUM 50 MG TABLET PO SCH (09:00)
[2023-01-05] MEDS: ASPIRIN 325MG EC TABLET PO SCH (09:00)
[2023-01-05] MEDS: CLONIDINE 0.1MG TABLET PO PRN (13:52)
[2023-01-05] MEDS: ACETAMINOPHEN 325MG TABLET PO PRN ×2 (13:53→18:53)
[2023-01-05] MEDS: ENOXAPARIN 30MG/0.3ML SYR SUBCUT SCH (13:53)
[2023-01-05] MEDS: HYDRALAZINE HCL 50MG TABLET PO SCH ×2 (13:57→21:04)
[2023-01-05] MEDS ORDERED: HYDR100T26 PO (14:35)
[2023-01-05] MEDS ORDERED: *PATIENT'S OWN MEDICATION STORAGE XX SCH (16:30)
[2023-01-05 16:56] LABS: CREATINE KINASE MB FRACTION 1.9 ng/mL (0.5-3.6)
[2023-01-05 17:18] LABS: HEPATITIS B SURFACE ANTIGEN NEGATIVE
[2023-01-05] MEDS ORDERED: CARVEDILOL 3.125 MG TABLET PO SCH (18:00)
[2023-01-05] MEDS ORDERED: ZOLPIDEM TARTRATE 5MG TABLET PO PRN (21:00)
[2023-01-06] VITALS (16 sets, daily range): BP systolic 122–175; BP diastolic 82–127
[2023-01-06 00:06] LABS: CREATINE KINASE MB FRACTION 1.6 ng/mL (0.5-3.6)
[2023-01-06] MEDS: ACETAMINOPHEN 325MG TABLET PO PRN ×2 (02:44→13:58)
[2023-01-06] MEDS: CLONIDINE 0.1MG TABLET PO PRN (05:00)
[2023-01-06] MEDS: HYDRALAZINE HCL 50MG TABLET PO SCH ×3 (06:00→21:22)
[2023-01-06 06:11] LABS: BASOPHILS % 1.1 % (0.0-2.0); EOSINOPHILS % 2.1 % (0.0-5.0); HEMATOCRIT. 38.3 % (36.0-48.0); HEMOGLOBIN. 12.6 g/dL (12.0-16.0); LYMPHOCYTES % 21.9 % (20.0-50.0); MEAN CORPUSCULAR HEMOGLOBIN 29.1 pg (28.0-32.0); MEAN CORPUSCULAR VOLUME 88.2 fL (81.0-99.0); MEAN PLATELET VOLUME 8.3 fl (7.4-10.4); MONOCYTES % 6.5 % (2.0-8.0); NEUTROPHILS % 68.4 % (40.0-76.0); PLATELET 193 x1000/uL (130-400); RED BLOOD CELL COUNT 4.34 mill/uL (4.2-5.4); RED CELL DISTRIBUTION WIDTH 16.9 % (11.6-14.6)
[2023-01-06] MEDS: CARVEDILOL 12.5MG TABLET PO SCH ×2 (06:30→18:00)
[2023-01-06] MEDS ORDERED: CARVEDILOL 6.25 MG TABLET PO SCH (06:30)
[2023-01-06] MEDS: SEVELAMER CARBONATE 800 MG TABLET PO SCH ×3 (07:20→19:52)
[2023-01-06 08:31] LABS: CHLORIDE 97 mEq/L (98-107)
[2023-01-06 08:38] LABS: PHOSPHORUS 3.2 mg/dL (2.5-4.9)
[2023-01-06] MEDS: FAMOTIDINE 20MG TABLET PO SCH (09:00)
[2023-01-06] MEDS: ASPIRIN 325MG EC TABLET PO SCH (11:33)
[2023-01-06] MEDS: NIFEDIPINE XL 60MG TAB PO SCH (11:34)
[2023-01-06] MEDS: LOSARTAN POTASSIUM 50 MG TABLET PO SCH (11:35)
[2023-01-06] MEDS: ENOXAPARIN 30MG/0.3ML SYR SUBCUT SCH (11:36)
[2023-01-06] MEDS: LIDOCAINE 5% PATCH TOP SCH (23:49)
[2023-01-07 00:01] VITALS: BP 145/88
[2023-01-07 04:00] VITALS: BP 143/104
[2023-01-07] MEDS: HYDRALAZINE HCL 50MG TABLET PO SCH ×3 (06:26→23:30)
[2023-01-07] MEDS: CARVEDILOL 12.5MG TABLET PO SCH ×2 (06:27→17:26)
[2023-01-07 08:00] VITALS: BP 150/84
[2023-01-07] MEDS: NIFEDIPINE XL 60MG TAB PO SCH (09:12)
[2023-01-07] MEDS: FAMOTIDINE 20MG TABLET PO SCH (09:12)
[2023-01-07] MEDS: ASPIRIN 325MG EC TABLET PO SCH (09:13)
[2023-01-07] MEDS: LOSARTAN POTASSIUM 50 MG TABLET PO SCH (09:13)
[2023-01-07] MEDS: SEVELAMER CARBONATE 800 MG TABLET PO SCH ×3 (09:13→17:24)
[2023-01-07] MEDS: ENOXAPARIN 30MG/0.3ML SYR SUBCUT SCH (09:14)
[2023-01-07] MEDS: LIDOCAINE 5% PATCH TOP SCH (09:16)
[2023-01-07 12:00] VITALS: BP 143/113
[2023-01-07 16:00] VITALS: BP 143/80
[2023-01-07 20:00] VITALS: BP 137/99
[2023-01-07] MEDS: ACETAMINOPHEN 325MG TABLET PO PRN (21:17)
[2023-01-08] VITALS: BP 139/97
[2023-01-08 04:00] VITALS: BP 147/104
[2023-01-08] MEDS: CARVEDILOL 12.5MG TABLET PO SCH ×2 (06:24→18:32)
[2023-01-08] MEDS: HYDRALAZINE HCL 50MG TABLET PO SCH ×3 (06:24→22:31)
[2023-01-08 08:00] VITALS: BP 157/97
[2023-01-08] MEDS: FAMOTIDINE 20MG TABLET PO SCH (08:26)
[2023-01-08] MEDS: LOSARTAN POTASSIUM 50 MG TABLET PO SCH (08:26)
[2023-01-08] MEDS: SEVELAMER CARBONATE 800 MG TABLET PO SCH ×3 (08:27→18:32)
[2023-01-08] MEDS: ASPIRIN 325MG EC TABLET PO SCH (08:27)
[2023-01-08] MEDS: LIDOCAINE 5% PATCH TOP SCH (08:28)
[2023-01-08] MEDS: ENOXAPARIN 30MG/0.3ML SYR SUBCUT SCH (08:28)
[2023-01-08] MEDS: NIFEDIPINE XL 60MG TAB PO SCH (08:32)
[2023-01-08 12:00] VITALS: BP 157/97
[2023-01-08 16:00] VITALS: BP 100/44
[2023-01-08 20:00] VITALS: BP 147/102
[2023-01-08] MEDS: ACETAMINOPHEN 325MG TABLET PO PRN (22:35)
[2023-01-09] VITALS (9 sets, daily range): BP systolic 137–167; BP diastolic 84–112
[2023-01-09] MEDS: CLONIDINE 0.1MG TABLET PO PRN ×2 (04:07→12:00)
[2023-01-09 06:24] LABS: BASOPHILS % 0.7 % (0.0-2.0); EOSINOPHILS % 1.9 % (0.0-5.0); HEMATOCRIT. 41.8 % (36.0-48.0); HEMOGLOBIN. 13.8 g/dL (12.0-16.0); LYMPHOCYTES % 23.2 % (20.0-50.0); MEAN CORPUSCULAR HEMOGLOBIN 28.8 pg (28.0-32.0); MEAN CORPUSCULAR VOLUME 87.4 fL (81.0-99.0); MEAN PLATELET VOLUME 8.6 fl (7.4-10.4); MONOCYTES % 8.7 % (2.0-8.0); NEUTROPHILS % 65.5 % (40.0-76.0); PLATELET 205 x1000/uL (130-400); RED BLOOD CELL COUNT 4.79 mill/uL (4.2-5.4); RED CELL DISTRIBUTION WIDTH 16.3 % (11.6-14.6)
[2023-01-09] MEDS: HYDRALAZINE HCL 50MG TABLET PO SCH (07:01)
[2023-01-09] MEDS: CARVEDILOL 12.5MG TABLET PO SCH (07:01)
[2023-01-09] MEDS: SEVELAMER CARBONATE 800 MG TABLET PO SCH ×2 (07:20→12:00)
[2023-01-09] MEDS: LOSARTAN POTASSIUM 50 MG TABLET PO SCH ×2 (08:43→12:00)
[2023-01-09] MEDS: NIFEDIPINE XL 60MG TAB PO SCH ×2 (08:44→12:00)
[2023-01-09] MEDS: FAMOTIDINE 20MG TABLET PO SCH (08:44)
[2023-01-09] MEDS: ASPIRIN 325MG EC TABLET PO SCH (08:44)
[2023-01-09] MEDS: LIDOCAINE 5% PATCH TOP SCH (08:45)
[2023-01-09] MEDS: ENOXAPARIN 30MG/0.3ML SYR SUBCUT SCH (10:00)
== END 2023-01-09 14:11 | disposition home or self-care (01) | DRG 280 ==
LOC: ER 18:39 → MICUSO 01-05 01:22 → EDBEDREQ 01-05 01:26 → EDBEDREQTM 01-05 01:26 → EDBEDREQDT 01-05 01:26 → 3WST 01-05 13:32
PROVIDERS: ADMIT Internal Medicine; ATTEND Internal Medicine
PROC: 5A1D70Z Performance of Urinary Filtration, Intermittent, Less than 6 Hours Per Day (ICD-10-PCS; principal; 2023-01-05)
PROC: 5A1D70Z Performance of Urinary Filtration, Intermittent, Less than 6 Hours Per Day (ICD-10-PCS; 2023-01-06)
DX: I13.2 Hypertensive heart and chronic kidney disease with heart failure and with stage 5 chronic kidney disease, or end stage renal disease (principal); E11.10 Type 2 diabetes mellitus with ketoacidosis without coma; I21.4 Non-ST elevation (NSTEMI) myocardial infarction; I50.33 Acute on chronic diastolic (congestive) heart failure; J96.01 Acute respiratory failure with hypoxia; N18.6 End stage renal disease; N17.0 Acute kidney failure with tubular necrosis; G92.8 Other toxic encephalopathy; I16.1 Hypertensive emergency; E87.1 Hypo-osmolality and hyponatremia; E78.00 Pure hypercholesterolemia, unspecified; E11.22 Type 2 diabetes mellitus with diabetic chronic kidney disease; D63.1 Anemia in chronic kidney disease; E83.52 Hypercalcemia; E88.09 Other disorders of plasma-protein metabolism, not elsewhere classified; Z88.0 Allergy status to penicillin; Z91.15 Patient's noncompliance with renal dialysis; Z99.2 Dependence on renal dialysis; Z91.199 Patient's noncompliance with other medical treatment and regimen due to unspecified reason; Z79.899 Other long term (current) drug therapy
CPT/HCPCS: 36415; 71045; 72148; 80048; 80053; 82550; 82553; 83605; 83735; 83880; 84100; 84145; 84484; 85025; 86705; 86709; 86803; 87340; 87426; 87804; 90935; 93005; 97162; 97166; 99285; C9803; J1650; J1956

== ENCOUNTER 2023-01-17 04:22 | Inpatient (IN) | payer MEDICARE, MEDICAID ==
[2023-01-17] VITALS (12 sets, daily range): BP systolic 115–194; BP diastolic 85–124
[~2023-01-17] VITALS: Ht 167.6 cm; Wt 52.2 kg
[~2023-01-17 04:22] MED LIST changes: -AMLO10TA80 PO; +HYDR100T26 PO
[2023-01-17] MEDS ORDERED: MORPHINE SULFATE 4 MG/ML CPJ (NOT FOR IM USE) IV STA (06:12)
[2023-01-17] MEDS ORDERED: ONDANSETRON HCL 4MG/2ML INJ IV STA (06:12)
[2023-01-17] MEDS ORDERED: MIDAZOLAM HCL 2 MG/2 ML VIAL IV ONE (06:15)
[2023-01-17] MEDS ORDERED: MORPHINE SULFATE 4 MG/ML CPJ (NOT FOR IM USE) IV SCH (08:45)
[2023-01-17] MEDS ORDERED: ONDANSETRON HCL 4MG/2ML INJ IV SCH (08:45)
[2023-01-17] MEDS ORDERED: MIDAZOLAM HCL 2 MG/2 ML VIAL IV SCH (08:45)
[2023-01-17] MEDS ORDERED: ACETAMINOPHEN 325MG TABLET PO ONE (09:45)
[2023-01-17 09:47] LABS: EOSINOPHILS % 0.5 % (0.0-5.0); HEMATOCRIT. 42.6 % (36.0-48.0); HEMOGLOBIN. 13.8 g/dL (12.0-16.0); LYMPHOCYTES % 24.1 % (20.0-50.0); MEAN CORPUSCULAR HEMOGLOBIN 28.1 pg (28.0-32.0); MEAN CORPUSCULAR VOLUME 86.4 fL (81.0-99.0); MEAN PLATELET VOLUME 8.4 fl (7.4-10.4); MONOCYTES % 6.8 % (2.0-8.0); NEUTROPHILS % 67.6 % (40.0-76.0); PLATELET 201 x1000/uL (130-400); RED BLOOD CELL COUNT 4.92 mill/uL (4.2-5.4); RED CELL DISTRIBUTION WIDTH 16.3 % (11.6-14.6)
[2023-01-17 09:53] LABS: CHLORIDE 92 mEq/L (98-107)
[2023-01-17 11:54] LABS: INR 1.4; PROTHROMBIN TIME 14.7 sec (9.6-11.0)
[2023-01-17] MEDS ORDERED: ONDANSETRON HCL 4MG/2ML INJ IV PRN (13:45)
[2023-01-17] MEDS ORDERED: CLONIDINE 0.1MG TABLET PO NR (13:45)
[2023-01-17] MEDS ORDERED: MAGNESIUM/ALUMINUM HYDROXIDE/SIMETHICONE 30ML UDC PO PRN (13:45)
[2023-01-17] MEDS ORDERED: ACETAMINOPHEN 325MG TABLET PO PRN (13:45)
[2023-01-17] MEDS ORDERED: IPRATROPIUM/ALBUTEROL 0.5-3(2.5)MG/3ML NEB HHN PRN (13:45)
[2023-01-17] MEDS ORDERED: CLONIDINE 0.1MG TABLET PO PRN (13:45)
[2023-01-17] MEDS ORDERED: GUAIFENESIN 200MG/10ML SUGAR FREE UDC PO PRN (13:45)
[2023-01-17] MEDS: ACETAMINOPHEN 325MG TABLET PO PRN ×2 (16:04→22:45)
[2023-01-17] MEDS: ENOXAPARIN 30MG/0.3ML SYR SUBCUT SCH (16:04)
[2023-01-17] MEDS ORDERED: FAMOTIDINE 20MG TABLET PO SCH (21:00)
[2023-01-18] VITALS: BP 121/86
[2023-01-18 04:00] VITALS: BP 147/104
[2023-01-18] MEDS: ACETAMINOPHEN 325MG TABLET PO PRN (07:41)
[2023-01-18 07:44] VITALS: BP 157/100
[2023-01-18 08:00] LABS: BASOPHILS % 1.6 % (0.0-2.0); EOSINOPHILS % 1.4 % (0.0-5.0); HEMATOCRIT. 42.2 % (36.0-48.0); HEMOGLOBIN. 13.7 g/dL (12.0-16.0); MEAN CORPUSCULAR HEMOGLOBIN 27.9 pg (28.0-32.0); MEAN CORPUSCULAR VOLUME 86.1 fL (81.0-99.0); MEAN PLATELET VOLUME 8.5 fl (7.4-10.4); MONOCYTES % 8.4 % (2.0-8.0); NEUTROPHILS % 62.6 % (40.0-76.0); PLATELET 205 x1000/uL (130-400)
[2023-01-18 08:13] LABS: CHLORIDE 93 mEq/L (98-107)
[2023-01-18] MEDS ORDERED: LORAZEPAM 0.5MG TABLET PO PRN (11:15)
[2023-01-18 11:44] VITALS: BP 143/94
[2023-01-18 11:54] LABS: HEPATITIS B SURFACE ANTIGEN NEGATIVE
[2023-01-18] MEDS ORDERED: IBUP-2030 PO (14:01)
[2023-01-18] MEDS: ENOXAPARIN 30MG/0.3ML SYR SUBCUT SCH (14:45)
[2023-01-18 15:04] VITALS: BP 149/90
[2023-01-18 16:23] VITALS: BP 126/76
== END 2023-01-18 17:42 | disposition home or self-care (01) | DRG 314 ==
LOC: ER 04:22 → 3WST 10:15 → EDBEDREQ 10:18 → EDBEDREQTM 10:18 → ENRESERV 13:58 → CANRESERV 13:58
PROVIDERS: ADMIT Internal Medicine; ATTEND Internal Medicine
PROC: 5A1D70Z Performance of Urinary Filtration, Intermittent, Less than 6 Hours Per Day (ICD-10-PCS; principal; 2023-01-17)
DX: T82.510A Breakdown (mechanical) of surgically created arteriovenous fistula, initial encounter (principal); N18.6 End stage renal disease; I16.9 Hypertensive crisis, unspecified; E87.1 Hypo-osmolality and hyponatremia; I50.22 Chronic systolic (congestive) heart failure; I13.2 Hypertensive heart and chronic kidney disease with heart failure and with stage 5 chronic kidney disease, or end stage renal disease; I67.4 Hypertensive encephalopathy; T82.848A Pain due to vascular prosthetic devices, implants and grafts, initial encounter; E78.5 Hyperlipidemia, unspecified; E87.5 Hyperkalemia; D64.9 Anemia, unspecified; I25.10 Atherosclerotic heart disease of native coronary artery without angina pectoris; K44.9 Diaphragmatic hernia without obstruction or gangrene; Z82.49 Family history of ischemic heart disease and other diseases of the circulatory system; Z88.0 Allergy status to penicillin; Z99.2 Dependence on renal dialysis; Z79.899 Other long term (current) drug therapy; Y71.2 Prosthetic and other implants, materials and accessory cardiovascular devices associated with adverse incidents; Y92.89 Other specified places as the place of occurrence of the external cause
CPT/HCPCS: 36415; 71045; 80053; 84484; 85025; 86705; 86709; 86803; 87340; 90935; 93005; 93970; 93971; 97162; 97535; 99285; J1650; J2250; J2270; J2405

== ENCOUNTER 2023-01-24 06:23 | Inpatient (IN) | payer MEDICARE, MEDICAID ==
[~2023-01-24] VITALS: Ht 170.2 cm; Wt 42.2 kg
[~2023-01-24 06:23] MED LIST changes: -HYDR100T26 PO; -METR-167 MT
[2023-01-24 09:21] LABS: EOSINOPHILS % 0.4 % (0.0-5.0); HEMATOCRIT. 35.8 % (36.0-48.0); HEMOGLOBIN. 11.6 g/dL (12.0-16.0); LYMPHOCYTES % 18.2 % (20.0-50.0); MEAN CORPUSCULAR HEMOGLOBIN 27.6 pg (28.0-32.0); MEAN CORPUSCULAR VOLUME 85.1 fL (81.0-99.0); MEAN PLATELET VOLUME 8.6 fl (7.4-10.4); MONOCYTES % 7.8 % (2.0-8.0); NEUTROPHILS % 72.6 % (40.0-76.0); PLATELET 187 x1000/uL (130-400); RED CELL DISTRIBUTION WIDTH 15.8 % (11.6-14.6)
[2023-01-24 09:27] LABS: CHLORIDE 95 mEq/L (98-107)
[2023-01-24] MEDS ORDERED: ASPIRIN 81MG TABLET PO NR (11:45)
[2023-01-24 12:02] LABS: INR 1.4; PARTIAL THROMBOPLASTIN TIME 27.6 sec (23.4-31.0); PROTHROMBIN TIME 15.2 sec (9.6-11.0)
[2023-01-24] MEDS ORDERED: ONDANSETRON HCL 4MG/2ML INJ IV PRN (12:15)
[2023-01-24] MEDS ORDERED: HYDRALAZINE HCL 100MG TABLET PO NR (12:30)
[2023-01-24] MEDS: SEVELAMER CARBONATE 800 MG TABLET PO SCH ×2 (12:47→18:36)
[2023-01-24] MEDS: CLONIDINE 0.2MG TABLET PO SCH ×2 (15:59→22:12)
[2023-01-24] MEDS: ACETAMINOPHEN 325MG TABLET PO PRN (16:00)
[2023-01-24 17:31] VITALS: BP 183/119
[2023-01-24] MEDS ORDERED: SEVE800T8 MT (18:34)
[2023-01-24 19:59] VITALS: BP 127/83
[2023-01-24] MEDS: METOPROLOL TARTRATE 50MG TABLET PO SCH (20:34)
[2023-01-24] MEDS: HYDRALAZINE HCL 100MG TABLET PO SCH (22:13)
[2023-01-25] VITALS (7 sets, daily range): BP systolic 109–144; BP diastolic 66–88
[2023-01-25] MEDS: TRAMADOL 50MG TABLET PO PRN ×2 (00:36→17:16)
[2023-01-25] MEDS: HYDRALAZINE HCL 100MG TABLET PO SCH ×2 (05:34→14:09)
[2023-01-25] MEDS: CLONIDINE 0.2MG TABLET PO SCH ×2 (05:34→14:11)
[2023-01-25] MEDS: SEVELAMER CARBONATE 800 MG TABLET PO SCH ×3 (09:00→17:16)
[2023-01-25] MEDS: METOPROLOL TARTRATE 50MG TABLET PO SCH (09:00)
[2023-01-25] MEDS: ACETAMINOPHEN 325MG TABLET PO PRN (13:03)
[2023-01-25] MEDS ORDERED: ASPIRIN 81MG TABLET PO SCH (14:30)
[2023-01-25 15:42] LABS: BASOPHILS % 1.3 % (0.0-2.0); HEMATOCRIT. 35.9 % (36.0-48.0); HEMOGLOBIN. 11.8 g/dL (12.0-16.0); LYMPHOCYTES % 22.7 % (20.0-50.0); MEAN CORPUSCULAR HEMOGLOBIN 27.9 pg (28.0-32.0); MEAN CORPUSCULAR VOLUME 85.1 fL (81.0-99.0); MEAN PLATELET VOLUME 8.7 fl (7.4-10.4); MONOCYTES % 6.5 % (2.0-8.0); NEUTROPHILS % 68.5 % (40.0-76.0); PLATELET 153 x1000/uL (130-400); RED BLOOD CELL COUNT 4.22 mill/uL (4.2-5.4); RED CELL DISTRIBUTION WIDTH 15.9 % (11.6-14.6)
[2023-01-25] MEDS ORDERED: ATORVASTATIN CALCIUM 40MG TABLET PO SCH (21:00)
[2023-01-27] MEDS ORDERED: LORATADINE 10MG TABLET PO SCH (09:00)
== END 2023-01-25 19:30 | disposition home or self-care (01) | DRG 308 ==
LOC: ER 06:33 → MICUSO 09:04 → EDBEDREQ 09:09 → EDBEDREQTM 09:09 → 7WST 15:18
PROVIDERS: ADMIT Internal Medicine; ATTEND Internal Medicine
DX: I47.1 Supraventricular tachycardia (principal); N18.6 End stage renal disease; I12.0 Hypertensive chronic kidney disease with stage 5 chronic kidney disease or end stage renal disease; I16.0 Hypertensive urgency; F41.9 Anxiety disorder, unspecified; E78.5 Hyperlipidemia, unspecified; R56.9 Unspecified convulsions; M54.9 Dorsalgia, unspecified; Z20.822 Contact with and (suspected) exposure to COVID-19; Z99.2 Dependence on renal dialysis; Z88.0 Allergy status to penicillin; Z79.899 Other long term (current) drug therapy; Z79.82 Long term (current) use of aspirin; Z82.49 Family history of ischemic heart disease and other diseases of the circulatory system
CPT/HCPCS: 36415; 71045; 80048; 80053; 83880; 84484; 85025; 87426; 93005; 93306; 99291

== ENCOUNTER 2023-06-06 05:59 | Emergency (ER) | payer MEDICARE, MEDICAID ==
[~2023-06-06] VITALS: Ht 167.6 cm; Wt 70.0 kg
[~2023-06-06 05:59] MED LIST changes: +DOXA-14 PO; -DOXA2TAB PO; -LOSA100T32 PO; +LOSA100T33 PO; +SEVE800T8 MT
[2023-06-06 06:00] VITALS: O2SAT 98
[2023-06-06] MEDS ORDERED: FENTANYL CITRATE/PF 50MCG/ML 2ML VIAL IV ONE (06:15)
[2023-06-06] MEDS ORDERED: ADENOSINE 3 MG/ML 2ML VIAL IV ONE ×2 (06:15→06:45)
[2023-06-06] MEDS ORDERED: SODIUM CHLORIDE 0.9% 1,000 ML IV ONE (06:15)
[2023-06-06] MEDS ORDERED: SODIUM CHLORIDE 0.9% 500 ML IV ONE (06:45)
[2023-06-06 06:56] LABS: CHLORIDE 92 mEq/L (98-107)
[2023-06-06 06:58] LABS: EOSINOPHILS % 6.6 % (0.0-5.0); HEMATOCRIT. 31.6 % (36.0-48.0); HEMOGLOBIN. 10.4 g/dL (12.0-16.0); LYMPHOCYTES % 42.7 % (20.0-50.0); MEAN CORPUSCULAR HEMOGLOBIN 27.7 pg (28.0-32.0); MEAN CORPUSCULAR VOLUME 83.9 fL (81.0-99.0); MEAN PLATELET VOLUME 7.8 fl (7.4-10.4); MONOCYTES % 11.7 % (2.0-8.0); PLATELET 261 x1000/uL (130-400); RED BLOOD CELL COUNT 3.76 mill/uL (4.2-5.4); RED CELL DISTRIBUTION WIDTH 18.8 % (11.6-14.6)
[2023-06-06] MEDS ORDERED: CALCIUM GLUCONATE 100MG/ML 10ML VIAL IV ONE (07:15)
[2023-06-06] MEDS ORDERED: ASPIRIN 81MG TABLET PO SCH (11:00)
[2023-06-06] MEDS ORDERED: DILTIAZEM HCL 30MG TABLET PO SCH (12:00)
[2023-06-06 13:20] VITALS: BP 140/62; PULSE 88; RESP 12; TEMP 97.8
[2023-06-06] MEDS ORDERED: ATORVASTATIN CALCIUM 20MG TABLET PO SCH (21:00)
[2023-06-06] MEDS ORDERED: METOPROLOL TARTRATE 50MG TABLET PO SCH (21:00)
== END 2023-06-06 14:01 | disposition home or self-care (01) ==
LOC: ER 05:59
DX: I47.1 Supraventricular tachycardia (principal); I12.0 Hypertensive chronic kidney disease with stage 5 chronic kidney disease or end stage renal disease; N18.6 End stage renal disease; Z99.2 Dependence on renal dialysis; Z88.0 Allergy status to penicillin
CPT/HCPCS: 80053; 85025; 84484; 36415; 71045; 96361; 96374; 96375; 99291; J3010; J0153; J0610; J7040; J7030

== ENCOUNTER 2023-11-07 06:00 | Emergency (ER) | payer MEDICARE, MEDICAID ==
[~2023-11-07] VITALS: Ht 172.7 cm; Wt 70.0 kg
[2023-11-07 06:01] VITALS: RESP 18; TEMP 98.2; O2SAT 98
[2023-11-07] MEDS ORDERED: MAGNESIUM 2 G PREMIX 50 ML IV ONE (08:30)
[2023-11-07 08:41] LABS: BASOPHILS % 0.9 % (0.0-2.0); HEMATOCRIT. 40.3 % (36.0-48.0); HEMOGLOBIN. 12.8 g/dL (12.0-16.0); LYMPHOCYTES % 18.9 % (20.0-50.0); MEAN CORPUSCULAR HEMOGLOBIN 27.9 pg (28.0-32.0); MEAN CORPUSCULAR HGB CONC 31.9 g/dL (31.0-37.0); MEAN CORPUSCULAR VOLUME 87.5 fL (81.0-99.0); MEAN PLATELET VOLUME 8.2 fl (7.4-10.4); MONOCYTES % 8.6 % (2.0-8.0); NEUTROPHILS % 69.6 % (40.0-76.0); PLATELET 183 x1000/uL (130-400); RED CELL DISTRIBUTION WIDTH 19.3 % (11.6-14.6); WHITE BLOOD COUNT 5.8 x1000/uL (4.5-11.0)
[2023-11-07 12:02] VITALS: BP 155/92; PULSE 98
[2023-11-07 13:04] LABS: ALANINE AMINOTRANSFERASE 9 IU/L (10-49); ALBUMIN 4.1 g/dL (3.2-4.8); ASPARTATE AMINOTRANSFERASE 25 IU/L (<34); BILIRUBIN TOTAL < 0.2 mg/dL (0.1-1.0); CALCIUM 9.4 mg/dL (8.7-10.4); CARBON DIOXIDE 26 mEq/L (21-32); CHLORIDE 101 mEq/L (98-107); GLUCOSE 101 mg/dL (70-105); PHOSPHORUS 3.5 mg/dL (2.5-4.9); PROTEIN TOTAL 7.1 g/dL (6.0-8.3); SODIUM 143 mEq/L (136-145); UREA NITROGEN BLOOD 14 mg/dL (9-23)
[2023-11-07 13:16] LABS: CREATININE 6.1 mg/dL (0.6-1.0)
== END 2023-11-07 13:42 | disposition home or self-care (01) ==
LOC: ER 06:43
DX: R00.2 Palpitations (principal); I12.0 Hypertensive chronic kidney disease with stage 5 chronic kidney disease or end stage renal disease; N18.6 End stage renal disease; Z88.0 Allergy status to penicillin; Z98.890 Other specified postprocedural states
CPT/HCPCS: 36415; 80053; 83735; 84100; 85025; 93005; 99284

== ENCOUNTER 2025-02-07 12:03 | Emergency (ER) | payer MEDICARE, MEDICAID ==
[~2025-02-07] VITALS: Ht 165.1 cm; Wt 57.0 kg
[~2025-02-07 12:03] MED LIST changes: +FOLI0.8T53 PO; -NEPVIT PO
[2025-02-07 12:14] VITALS: O2SAT 97
[2025-02-07 15:13] LABS: CARBON DIOXIDE 31 mEq/L (21-32)
[2025-02-07 15:14] LABS: CALCIUM 8.4 mg/dL (8.7-10.4)
[2025-02-07 15:16] LABS: CHLORIDE 92 mEq/L (98-107); POTASSIUM 3.5 mEq/L (3.5-5.1); SODIUM 134 mEq/L (136-145)
[2025-02-07 15:18] LABS: BASOPHILS % 0.7 % (0.0-2.0); EOSINOPHILS % 0.3 % (0.0-5.0); GLUCOSE 93 mg/dL (70-105); HEMATOCRIT. 32.6 % (36.0-48.0); HEMOGLOBIN. 10.5 g/dL (12.0-16.0); LYMPHOCYTES % 11.8 % (20.0-50.0); MEAN CORPUSCULAR HEMOGLOBIN 27.3 pg (28.0-32.0); MEAN CORPUSCULAR HGB CONC 32.1 g/dL (31.0-37.0); MEAN CORPUSCULAR VOLUME 85.1 fL (81.0-99.0); MEAN PLATELET VOLUME 7.6 fl (7.4-10.4); NEUTROPHILS % 82.2 % (40.0-76.0); PLATELET 252 x1000/uL (130-400); RED BLOOD CELL COUNT 3.83 mill/uL (4.2-5.4); RED CELL DISTRIBUTION WIDTH 15.7 % (11.6-14.6); TROPONIN I HIGH SENSITIVITY 13 ng/L (3.0-34); WHITE BLOOD COUNT 6.2 x1000/uL (4.5-11.0)
[2025-02-07 15:19] LABS: UREA NITROGEN BLOOD 15 mg/dL (9-23)
[2025-02-07 15:20] LABS: ALANINE AMINOTRANSFERASE < 7 IU/L (10-49); ALBUMIN 3.5 g/dL (3.2-4.8); ASPARTATE AMINOTRANSFERASE 15 IU/L (<34)
[2025-02-07 15:21] LABS: BILIRUBIN DIRECT 0.2 mg/dL (<=3.0); BILIRUBIN TOTAL 0.2 mg/dL (0.1-1.0); PROTEIN TOTAL 7.3 g/dL (6.0-8.3)
[2025-02-07 15:33] LABS: D-DIMER 6.63 mg/L FEU (<0.50); INR 1.4
[2025-02-07] MEDS: CARBAMIDE PEROXIDE 6.5% OTIC SOLN 15ML LEFT EAR ONE (15:53)
[2025-02-07 16:23] LABS: CREATININE 5.3 mg/dL (0.6-1.0)
[2025-02-07] MEDS ORDERED: FERR325T6 MT (17:01)
[2025-02-07 17:28] VITALS: BP 110/78; PULSE 71; RESP 14; TEMP 36.6; O2SAT 98
== END 2025-02-07 17:32 | disposition home or self-care (01) ==
LOC: ER 12:03
DX: I10 Essential (primary) hypertension (principal); D64.9 Anemia, unspecified; Z98.890 Other specified postprocedural states; Z79.899 Other long term (current) drug therapy; Z99.2 Dependence on renal dialysis; Z88.0 Allergy status to penicillin
CPT/HCPCS: 36415; 80048; 80076; 84484; 85025; 85379; 99284

== ENCOUNTER 2025-06-25 17:12 | Emergency (ER) | payer MEDICARE, MEDICAID ==
[~2025-06-25] VITALS: Ht 165.1 cm; Wt 56.0 kg
[~2025-06-25 17:12] MED LIST changes: +FERR325T6 MT
[2025-06-25 17:19] VITALS: O2SAT 100
[2025-06-25 22:27] VITALS: BP 112/74; PULSE 75; RESP 19; TEMP 36.5; O2SAT 100
== END 2025-06-25 22:33 | disposition home or self-care (01) ==
LOC: ER 17:12
DX: T81.30XA Disruption of wound, unspecified, initial encounter (principal); I10 Essential (primary) hypertension; Z79.899 Other long term (current) drug therapy; Z99.2 Dependence on renal dialysis; Z98.890 Other specified postprocedural states; Z88.0 Allergy status to penicillin; Y92.89 Other specified places as the place of occurrence of the external cause
CPT/HCPCS: 99281

== ENCOUNTER 2025-08-08 22:03 | Emergency (ER) | payer MEDICAID ==
[~2025-08-08] VITALS: Ht 165.1 cm; Wt 57.3 kg
[~2025-08-08 22:03] MED LIST changes: +AMLO10TA80 PO; +CARV25TA47 PO; -COR12 PO; -DOXA-14 PO; -FERR325T6 MT; -FOLI0.8T53 PO; +LEVO-65 MT; -LOSA100T33 PO; +LOSA50TA41 MT; -NIFE-33 PO; -PANT40TA51 PO; -SEVE800T8 MT
[2025-08-08 22:05] VITALS: TEMP 37.1; O2SAT 99
[2025-08-09 00:26] LABS: BASOPHILS % 1.1 % (0.0-2.0); EOSINOPHILS % 4.7 % (0.0-5.0); HEMATOCRIT. 27.7 % (36.0-48.0); HEMOGLOBIN. 9.0 g/dL (12.0-16.0); LYMPHOCYTES % 15.5 % (20.0-50.0); MEAN PLATELET VOLUME 7.4 fl (7.4-10.4); MONOCYTES % 8.9 % (2.0-8.0); NEUTROPHILS % 69.8 % (40.0-76.0); PLATELET 238 x1000/uL (130-400); RED BLOOD CELL COUNT 3.15 mill/uL (4.2-5.4); RED CELL DISTRIBUTION WIDTH 17.3 % (11.6-14.6)
[2025-08-09 00:39] LABS: UREA NITROGEN BLOOD 24 mg/dL (9-23)
[2025-08-09 00:40] LABS: TROPONIN I HIGH SENSITIVITY 17 ng/L (3.0-34)
[2025-08-09 00:41] LABS: PHOSPHORUS 3.9 mg/dL (2.5-4.9)
[2025-08-09 00:49] LABS: CREATININE 7.2 mg/dL (0.6-1.0)
[2025-08-09] MEDS: HYDROCODONE/ACETAMINOPHEN 5/325MG TABLET PO NR (01:55)
[2025-08-09 02:30] LABS: ETHANOL BLOOD < 10 mg/dL (<10)
[2025-08-09 03:35] VITALS: BP 128/94; PULSE 83; RESP 20; O2SAT 100
[2025-08-09 03:39] LABS: INR 1.3
== END 2025-08-09 03:44 | disposition home or self-care (01) ==
LOC: ER 22:03 → CMPBEDREQ 08-09 05:56
DX: G89.18 Other acute postprocedural pain (principal); I13.11 Hypertensive heart and chronic kidney disease without heart failure, with stage 5 chronic kidney disease, or end stage renal disease; N18.6 End stage renal disease; Z99.2 Dependence on renal dialysis; Z79.899 Other long term (current) drug therapy; Z88.0 Allergy status to penicillin
CPT/HCPCS: 36415; 71045; 80048; 80320; 83735; 84100; 84484; 85025; 93005; 93922; 93971; 99285; G0480

== ENCOUNTER 2025-08-15 18:46 | Emergency (ER) | payer MEDICAID ==
[~2025-08-15] VITALS: Ht 165.1 cm; Wt 57.0 kg
[2025-08-15 18:48] VITALS: O2SAT 98
[2025-08-15 18:58] VITALS: BP 158/113; PULSE 79; RESP 16; TEMP 36.8; O2SAT 98
== END 2025-08-15 22:18 | disposition left against medical advice (07) ==
LOC: ER 18:58
DX: R21 Rash and other nonspecific skin eruption (principal); Z53.21 Procedure and treatment not carried out due to patient leaving prior to being seen by health care provider